=== PATIENT | male | born 1995 | race African-American/Black ===

== ENCOUNTER 2019-11-10 12:53 | Emergency (ER) | payer OTHER ==
[2019-11-10 13:07] VITALS: BP 131/80; PULSE 84; RESP 18; TEMP 98.4
--- NOTE | 2019-11-10 13:14 | ED ---
General Adult HPI - General Chief complaint: Extremity Injury, Lower Stated complaint: Fall - Right Ankle Injury Time Seen by Provider: 11/10/19 12:56 Source: patient, RN notes reviewed Mode of arrival: ambulatory Limitations: no limitations - History of Present Illness Initial comments: Patient is a pleasant 23-year-old male presenting to the emergency department with complaints of right foot and ankle discomfort. Onset of symptoms was prior to arrival. Patient was walking down a hill when he slipped on ice. Patient rolled over his ankle and did hear a snap. No other area of injury other than foot and right ankle. No head injury or loss of consciousness. No alcohol. Patient has limited ability to ambulate when he is up on his toes. No history of injury to this area previously. - Related Data Previous Rx's Medication Instructions Recorded ALPRAZolam [Xanax] 0.25 mg PO Q8HR PRN #10 tablet 08/08/14 Ibuprofen [Motrin] 600 mg PO Q6HR PRN #20 tab 11/10/19 Allergies Allergy/AdvReac Type Severity Reaction Status Date / Time No Known Allergies Allergy Verified 11/10/19 12:56 Review of Systems ROS Statement: Those systems with pertinent positive or pertinent negative responses have been documented in the HPI. ROS Other: All systems not noted in ROS Statement are negative. Constitutional: Denies: fever Eyes: Denies: eye pain ENT: Denies: ear pain Respiratory: Denies: cough Cardiovascular: Denies: chest pain Endocrine: Denies: fatigue Gastrointestinal: Denies: abdominal pain, vomiting Genitourinary: Denies: dysuria Musculoskeletal: Reports: as per HPI. Denies: back pain Skin: Denies: rash Neurological: Denies: headache Past Medical History Past Medical History: Seizure Disorder Additional Past Medical History / Comment(s): tricuspid valve problems, PSEUDOSEIZURES History of Any Multi-Drug Resistant Organisms: None Reported Past Surgical History: Appendectomy, Orthopedic Surgery Additional Past Surgical History / Comment(s): testicular torsion correction Past Psychological History: ADD/ADHD, Depression Smoking Status: Never smoker Past Alcohol Use History: Occasional Past Drug Use History: Marijuana General Exam Limitations: no limitations General appearance: alert, in no apparent distress Head exam: Present: normocephalic Eye exam: Present: normal appearance ENT exam: Present: normal oropharynx Neck exam: Present: normal inspection. Absent: tenderness Respiratory exam: Present: normal lung sounds bilaterally Cardiovascular Exam: Present: regular rate, normal rhythm Expanded Peripheral pulses: 2+: Dorsalis Pedis (R) GI/Abdominal exam: Present: soft. Absent: tenderness Extremities exam: Present: tenderness (Tenderness right lateral ankle and right lateral mid foot. There is also calcaneus tenderness. Distally the extremity is neurovascularly intact. Cap refill less than 2 seconds. Sensation and motor intact.) Back exam: Absent: vertebral tenderness Neurological exam: Present: alert. Absent: motor sensory deficit Psychiatric exam: Present: normal affect, normal mood Skin exam: Present: normal color Course Vital Signs 11/10/19 12:56 Temperature 98.4 F Pulse Rate 84 Respiratory 18 Rate Blood Pressure 131/80 O2 Sat by Pulse 99 Oximetry Medical Decision Making - Medical Decision Making Patient reevaluated and updated. Patient is made aware of potential small avulsion fracture of medial malleolus and is advised nonweightbearing and orthopedic follow-up. Prescription for crutches provided. - Radiology Data Radiology results: image reviewed (X-ray of the calcaneus, right foot, and right ankle reported as no acute abnormality. I do question a small avulsion fracture of the medial malleolus.) Disposition Clinical Impression: Avulsion fracture of medial malleolus of right tibia Disposition: HOME SELF-CARE Condition: Stable Instructions (If sedation given, give patient instructions): Ankle Fracture (ED) Additional Instructions: Please follow-up with primary care physician and orthopedics in the beginning of the week. If discomfort continues he will need repeat x-rays and possible boot or cast. Ice to affected area. Return for increased pain, swelling, worsening symptoms or other concerns. Use crutches, prescription provided. No weightbearing right foot. Prescriptions: Ibuprofen [Motrin] 600 mg PO Q6HR PRN #20 tab PRN Reason: Pain Is patient prescribed a controlled substance at d/c from ED?: No Referrals: Tim Trinidad MD [Primary Care Provider] - 1-2 days Time of Disposition: 14:19
--- NOTE | 2019-11-10 13:40 | XR ---
EXAMINATION TYPE: XR calcaneus 2V RT , 2 VIEWS DATE OF EXAM ORDERED: 11/10/2019 HISTORY: fall. COMPARISON: None. FINDINGS: The calcaneus has a normal appearance. No fracture is seen. Boehler's angle is maintained. IMPRESSION: NORMAL CALCANEUS.
--- NOTE | 2019-11-10 13:40 | XR ---
EXAMINATION TYPE: XR ankle complete RT , 3 VIEWS DATE OF EXAM ORDERED: 11/10/2019 HISTORY: fall. COMPARISON: None. FINDINGS: There is mild soft tissue swelling adjacent to the lateral malleolus. No fracture, disloca tion or ankle joint effusion is seen. IMPRESSION: SOFT TISSUE INJURY.
--- NOTE | 2019-11-10 13:41 | XR ---
EXAMINATION TYPE: XR foot complete RT , 3 VIEWS DATE OF EXAM ORDERED: 11/10/2019 HISTORY: fall. COMPARISON: None. FINDINGS: No fracture, dislocation or other acute osseous lesion is seen. IMPRESSION: NORMAL RIGHT FOOT.
[2019-11-10] MEDS ORDERED: IBUPROFEN 600 MG STARTER PACK 4 TAB BTL PO STA (14:19)
== END 2019-11-10 14:32 | disposition home or self-care (01) ==
LOC: EC 12:53
DX: S82.51XA Displaced fracture of medial malleolus of right tibia, initial encounter for closed fracture (principal); X50.9XXA Other and unspecified overexertion or strenuous movements or postures, initial encounter; Y93.01 Activity, walking, marching and hiking; Y92.828 Other wilderness area as the place of occurrence of the external cause
CPT/HCPCS: 99283

== ENCOUNTER 2020-01-02 09:07 | Emergency (ER) | payer BC, OTHER ==
[2020-01-02 09:13] VITALS: BP 146/86; PULSE 76; RESP 18; TEMP 97.9
[2020-01-02 09:57] LABS: Basophils % (A) 0 %; Eosinophils # (A) 0.3 k/uL (0-0.7); Eosinophils % (A) 6 %; HCT 44.9 % (39.0-53.0); HGB 14.6 gm/dL (13.0-17.5); Lymphocytes # (A) 1.3 k/uL (1.0-4.8); Lymphocytes % (A) 32 %; MCH 28.8 pg (25.0-35.0); MCHC 32.6 g/dL (31.0-37.0); MCV 88.6 fL (80.0-100.0); Mean Platelet Volume 7.8; Monocytes # (A) 0.2 k/uL (0-1.0); Monocytes % (A) 6 %; Neutrophils # (A) 2.1 k/uL (1.3-7.7); Neutrophils % (A) 53 %; Platelet Count 241 k/uL (150-450); RBC 5.07 m/uL (4.30-5.90); RDW 12.5 % (11.5-15.5)
[2020-01-02 10:08] LABS: Partial Thromboplastin Time 23.9 sec (22.0-30.0); Prothrombin Time 10.4 sec (9.0-12.0)
[2020-01-02 10:18] LABS: ALT 36 U/L (4-49); AST 46 U/L (17-59); African American GFR (CKD) >90 (>60 ml/min/1.73 sqM); Albumin 4.3 g/dL (3.5-5.0); Alkaline Phosphatase 70 U/L (38-126); Anion Gap 9 mmol/L; Blood Urea Nitrogen 17 mg/dL (9-20); Calcium 9.2 mg/dL (8.4-10.2); Carbon Dioxide 23 mmol/L (22-30); Chloride 107 mmol/L (98-107); Glucose 100 mg/dL (74-99); Non-African American GFR(CKD) >90 (>60 ml/min/1.73 sqM); Potassium 4.4 mmol/L (3.5-5.1); Sodium 139 mmol/L (137-145); Total Bilirubin 0.6 mg/dL (0.2-1.3); Total Protein 7.4 g/dL (6.3-8.2)
[2020-01-02] MEDS ORDERED: KETOROLAC 30 MG/ML 1 ML VIAL IVP STA (10:25)
--- NOTE | 2020-01-02 10:29 | ED ---
General Adult HPI - General Chief complaint: GI Bleed Stated complaint: blood in stool Time Seen by Provider: 01/02/20 09:15 Source: patient, RN notes reviewed Mode of arrival: ambulatory Limitations: no limitations - History of Present Illness Initial comments: 24-year-old male presents to the emergency department for multiple complaints. Patient states that he had one episode of bright red blood in his stool. Patient states he has been having diarrhea for the past several days. It is watery in nature. Denies any mucousy diarrhea. Denies fevers or chills. Does admit to some mild left lower quadrant discomfort. Patient is also complaining of testicular pain. 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 Patient states that this pain has been ongoing for about 8 days. States that his abdominal pain could be related.Patient has no other complaints at this time including shortness of breath, chest pain, nausea or vomiting, headache, or visual changes. - Related Data Previous Rx's Medication Instructions Recorded ALPRAZolam [Xanax] 0.25 mg PO Q8HR PRN #10 tablet 08/08/14 Ibuprofen [Motrin] 600 mg PO Q6HR PRN #20 tab 11/10/19 Allergies Allergy/AdvReac Type Severity Reaction Status Date / Time No Known Allergies Allergy Verified 01/02/20 09:07 Review of Systems ROS Statement: Those systems with pertinent positive or pertinent negative responses have been documented in the HPI. ROS Other: All systems not noted in ROS Statement are negative. Past Medical History Past Medical History: Seizure Disorder Additional Past Medical History / Comment(s): tricuspid valve problems, PSEUDOSEIZURES History of Any Multi-Drug Resistant Organisms: None Reported Past Surgical History: Appendectomy, Orthopedic Surgery Additional Past Surgical History / Comment(s): testicular torsion correction Past Psychological History: ADD/ADHD, Depression Smoking Status: Former smoker Past Alcohol Use History: Occasional Past Drug Use History: Marijuana General Exam Limitations: no limitations General appearance: alert, in no apparent distress Head exam: Present: atraumatic, normocephalic, normal inspection Eye exam: Present: normal appearance, PERRL, EOMI. Absent: scleral icterus, conjunctival injection, periorbital swelling ENT exam: Present: normal exam, mucous membranes moist Neck exam: Present: normal inspection, full ROM. Absent: tenderness, meningismus, lymphadenopathy Respiratory exam: Present: normal lung sounds bilaterally. Absent: respiratory distress, wheezes, rales, rhonchi, stridor Cardiovascular Exam: Present: regular rate, normal rhythm, normal heart sounds. Absent: systolic murmur, diastolic murmur, rubs, gallop, clicks GI/Abdominal exam: Present: soft, tenderness (Minimal left lower quadrant tenderness without any guarding or rebound), normal bowel sounds. Absent: distended, guarding, rebound, rigid Rectal exam: Present: normal inspection, normal rectal tone, other (Shakira Olmstead present on exam) exam: Present: testicular tenderness (pt has left testicular tenderness), other (Shakira OLMSTEAD present on exam). Absent: urethral discharge, scrotal swelling, vertical testicular lie Course Vital Signs 01/02/20 09:09 Temperature 97.9 F Pulse Rate 76 Respiratory 18 Rate Blood Pressure 146/86 O2 Sat by Pulse 100 Oximetry Medical Decision Making - Medical Decision Making Vitals are stable. She is well-appearing on exam. He has not been any di stress. Abdominal exam is benign. Minimal left lower quadrant tenderness without any guarding or rebound. Patient is afebrile. White blood cell count 4.0. Patient given Toradol and abdominal exam repeated, no tenderness at this time. Occult blood is negative. Discussed treatment of diarrhea with patient to include drinking plenty of fluids and monitoring. If this worsens he will return. Patient was also complaining of left testicular pain with history of testicular torsion with orchiopexy and epididymitis. Patient does have left testicular tenderness on exam. Exam was performed with Shakira OLMSTEAD at bedside. Urinalysis is unremarkable. Gonorrhea and chlamydia are pending. Ultrasound of the scrotum demonstrated a left epididymal cyst and possible phlebolith superior to the left epididymis. Color flow and vascular waveforms noted to both testes. There is a question of lack of color flow in one of the vessels superior to the right testes, patient will follow up with urology for this. I discussed with patient that if he has any worsening symptoms including worsening diarrhea, testicular pain, abdominal pain, or fevers he needs to return immediately to the emergency department. Patient is in agreement with this. States he is already established with urology and will follow-up. - Lab Data Result diagrams: 01/02/20 09:25 01/02/20 09:25 Lab Results 01/02/20 01/02/20 01/02/20 Range/Units 09:25 09:25 09:25 WBC 4.0 (3.8-10.6) k/uL RBC 5.07 (4.30-5.90) m/uL Hgb 14.6 (13.0-17.5) gm/dL Hct 44.9 (39.0-53.0) % MCV 88.6 (80.0-100.0) fL MCH 28.8 (25.0-35.0) pg MCHC 32.6 (31.0-37.0) g/dL RDW 12.5 (11.5-15.5) % Plt Count 241 (150-450) k/uL Neutrophils % 53 % Lymphocytes % 32 % Monocytes % 6 % Eosinophils % 6 % Basophils % 0 % Neutrophils # 2.1 (1.3-7.7) k/uL Lymphocytes # 1.3 (1.0-4.8) k/uL Monocytes # 0.2 (0-1.0) k/uL Eosinophils # 0.3 (0-0.7) k/uL Basophils # 0.0 (0-0.2) k/uL PT 10.4 (9.0-12.0) sec INR 1.0 (<1.2) APTT 23.9 (22.0-30.0) sec Sodium 139 (137-145) mmol/L Potassium 4.4 (3.5-5.1) mmol/L Chloride 107 (98-107) mmol/L Carbon Dioxide 23 (22-30) mmol/L Anion Gap 9 mmol/L BUN 17 (9-20) mg/dL Creatinine 1.12 (0.66-1.25) mg/dL Est GFR (CKD-EPI)AfAm >90 (>60 ml/min/1.73 sqM) Est GFR (CKD-EPI)NonAf >90 (>60 ml/min/1.73 sqM) Glucose 100 H (74-99) mg/dL Calcium 9.2 (8.4-10.2) mg/dL Total Bilirubin 0.6 (0.2-1.3) mg/dL AST 46 (17-59) U/L ALT 36 (4-49) U/L Alkaline Phosphatase 70 (38-126) U/L Total Protein 7.4 (6.3-8.2) g/dL Albumin 4.3 (3.5-5.0) g/dL Urine Color Urine Appearance (Clear) Urine pH (5.0-8.0) Ur Specific [place] (1.001-1.035) Urine Protein (Negative) Urine Glucose (UA) (Negative) Urine Ketones (Negative) Urine Blood (Negative) Urine Nitrite (Negative) Urine Bilirubin (Negative) Urine Urobilinogen (<2.0) mg/dL Ur Leukocyte Esterase (Negative) Stool Occult Blood (Negative) 01/02/20 01/02/20 Range/Units 09:53 10:15 WBC (3.8-10.6) k/uL RBC (4.30-5.90) m/uL Hgb (13.0-17.5) gm/dL Hct (39.0-53.0) % MCV (80.0-100.0) fL MCH (25.0-35.0) pg MCHC (31.0-37.0) g/dL RDW (11.5-15.5) % Plt Count (150-450) k/uL Neutrophils % % Lymphocytes % % Monocytes % % Eosinophils % % Basophils % % Neutrophils # (1.3-7.7) k/uL Lymphocytes # (1.0-4.8) k/uL Monocytes # (0-1.0) k/uL Eosinophils # (0-0.7) k/uL Basophils # (0-0.2) k/uL PT (9.0-12.0) sec INR (<1.2) APTT (22.0-30.0) sec Sodium (137-145) mmol/L Potassium (3.5-5.1) mmol/L Chloride (98-107) mmol/L Carbon Dioxide (22-30) mmol/L Anion Gap mmol/L BUN (9-20) mg/dL Creatinine (0.66-1.25) mg/dL Est GFR (CKD-EPI)AfAm (>60 ml/min/1.73 sqM) Est GFR (CKD-EPI)NonAf (>60 ml/min/1.73 sqM) Glucose (74-99) mg/dL Calcium (8.4-10.2) mg/dL Total Bilirubin (0.2-1.3) mg/dL AST (17-59) U/L ALT (4-49) U/L Alkaline Phosphatase (38-126) U/L Total Protein (6.3-8.2) g/dL Albumin (3.5-5.0) g/dL Urine Color Yellow Urine Appearance Clear (Clear) Urine pH 7.0 (5.0-8.0) Ur Specific [place] 1.028 (1.001-1.035) Urine Protein Negative (Negative) Urine Glucose (UA) Negative (Negative) Urine Ketones Negative (Negative) Urine Blood Negative (Negative) Urine Nitrite Negative (Negative) Urine Bilirubin Negative (Negative) Urine Urobilinogen <2.0 (<2.0) mg/dL Ur Leukocyte Esterase Negative (Negative) Stool Occult Blood Negative (Negative) Disposition Clinical Impression: Epididymal cyst, Testicular pain, left, Diarrhea Disposition: HOME SELF-CARE Condition: Good Instructions (If sedation given, give patient instructions): Scrotal Pain (ED), Acute Diarrhea (ED) Additional Instructions: Please drink plenty of fluids. If you have any worsening symptoms such as worsening abdominal or or testicular pain, worsening diarrhea, or fevers return to the emergency department for further evaluation. Otherwise follow-up with urology by calling for an appointment in the next couple days. Is patient prescribed a controlled substance at d/c from ED?: No Referrals: Tim Trinidad MD [Primary Care Provider] - 1-2 days Darrick Bay MD [STAFF PHYSICIAN] - 1-2 days Time of Disposition: 12:13
--- NOTE | 2020-01-02 11:30 | US ---
EXAMINATION TYPE: US scrotum with doppler. Grayscale and color Doppler Duplex imaging performed of t he scrotum. DATE OF EXAM: 01/02/2020 COMPARISON: NONE CLINICAL HISTORY: L testicular pain, h/o torsion, epididymitis. Left testicular pain, history of epid idymitis EXAM MEASUREMENTS: TESTICLES: Right Testicle: 5.9 x 2.8 x 3.0 cm, no intratesticular mass Left Testicle: 5.6 x 2.6 x 2.7 cm, no intratesticular mass, testicular echotexture is symmetric EPIDIDYMIS HEAD: Right Epididymis: 0.9 x 1.0 x 1.6 cm Left Epididymis: 0.7 x 1.0 x 1.5 cm Doppler performed to assess for testicular vascularity; bilateral color flow and waveforms are seen. Presence of hydroceles: no Presence of varicoceles: prominent vessel superior to right testicle, color flow not identified at t his level Left epididymis: 0.7 x 0.5 x 0.8cm cystic area 0.4cm echogenic shadowing focus seen within spermatic cord superior to left testicle and epididymi s IMPRESSION: Left epididymal cyst. Possible phlebolith superior to left epididymis. Color-flow, vascul ar waveforms noted to both testes. Question of lack of color flow in one of the vessels superior to t he right testis on a single image #25, grayscale image #24, consider urology consult, follow-up.
[2020-01-02 11:49] LABS: Appearance,Urine Clear (Clear); Bilirubin,Urine Negative (Negative); Blood,Urine Negative (Negative); Color,Urine Yellow; Glucose,Urine (UA) Negative (Negative); Ketones,Urine Negative (Negative); Leukocyte Esterase,Urine Negative (Negative); Nitrite,Urine Negative (Negative); Protein,Urine Negative (Negative); Specific Gravity,Urine 1.028 (1.001-1.035); Urobilinogen,Urine <2.0 mg/dL (<2.0)
[2020-01-03 15:38] LABS: C. trachomatis,PCR Negative (Neg,Equiv); Chlamydia trachomatis Source Urine; N. gonorrhoeae,PCR Negative (Neg,Equiv); Neisseria Source Urine
== END 2020-01-02 12:24 | disposition home or self-care (01) ==
LOC: EC 09:07
DX: N50.3 Cyst of epididymis (principal); R19.7 Diarrhea, unspecified; K92.1 Melena; Z87.891 Personal history of nicotine dependence; Z98.890 Other specified postprocedural states
CPT/HCPCS: 36415; 80053; 85025; 85610; 85730; 82272; 81003; 87491; 87591; 93975; 76870; 99285; 96374; J1885

== ENCOUNTER 2020-06-29 16:38 | Emergency (ER) | payer BC, OTHER ==
[2020-06-29 16:44] VITALS: RESP 18; TEMP 98.6
--- NOTE | 2020-06-29 16:52 | ED ---
General Adult HPI - General Chief complaint: Seizure Stated complaint: Seizures Time Seen by Provider: 06/29/20 16:45 Source: patient, family, EMS Mode of arrival: EMS Limitations: no limitations - History of Present Illness Initial comments: Patient presents the ED by ambulance for evaluation with his significant other at bedside. Patient states that "five people were arguing and screaming around me", causing him to become very "worked up" and anxious. Patient states that he then became shaky and had 2 seizure episodes. Patient's significant other states that she witnessed these episodes, and she describes the patient hyperventilating and becoming stiff. Patient states that he has a history of anxiety and pseudoseizures. Patient denies being a prescribed or taking any antiepileptic medication. Patient is currently only complaining of having a headache. Patient denies trauma or injury, sudden onset of severe headache, LOC, fever or chills, focal numbness is weakness/neuro deficit, neck/back/extremity pain, chest pain, dyspnea, palpitations, abdominal pain, nausea/vomiting/diarrhea, urinary symptoms, or any other symptoms or complaints. Patient admits to occasional marijuana use. Patient denies alcohol use. Patient denies medication abuse or overdose. - Related Data Home Medications Medication Instructions Recorded Confirmed No Known Home Medications 06/29/20 06/29/20 Allergies Allergy/AdvReac Type Severity Reaction Status Date / Time alprazolam [From Xanax] AdvReac DOESN'T Verified 06/29/20 17:45 WANT morphine AdvReac DOESN'T Verified 06/29/20 17:45 WANT Review of Systems ROS Statement: Those systems with pertinent positive or pertinent negative responses have been documented in the HPI. ROS Other: All systems not noted in ROS Statement are negative. Past Medical History Past Medical History: Seizure Disorder Additional Past Medical History / Comment(s): tricuspid valve problems, PSEUDOSEIZURES History of Any Multi-Drug Resistant Organisms: None Reported Past Surgical History: Appendectomy, Orthopedic Surgery Additional Past Surgical History / Comment(s): testicular torsion correction Past Psychological History: ADD/ADHD, Anxiety, Bipolar, Depression, Schizophrenia Smoking Status: Current every day smoker Past Alcohol Use History: Occasional Past Drug Use History: Marijuana General Exam Limitations: no limitations General appearance: alert, in no apparent distress Head exam: Present: atraumatic, normocephalic Eye exam: Present: normal appearance, PERRL, EOMI ENT exam: Present: mucous membranes moist Neck exam: Present: other (Trachea is in midline). Absent: tenderness, meningismus Respiratory exam: Present: normal lung sounds bilaterally. Absent: respiratory distress, wheezes, rales, rhonchi Cardiovascular Exam: Present: regular rate, normal rhythm, normal heart sounds, other (Normal radial pulses bilaterally) GI/Abdominal exam: Present: soft. Absent: distended, tenderness, guarding Extremities exam: Present: full ROM. Absent: tenderness, pedal edema Back exam: Present: normal inspection. Absent: tenderness Neurological exam: Present: alert, oriented X3, CN II-XII intact. Absent: motor sensory deficit Psychiatric exam: Present: normal affect, normal mood Skin exam: Present: warm, dry, intact, normal color Course Vital Signs 06/29/20 16:39 Temperature 98.6 F Pulse Rate 97 Respiratory 18 Rate Blood Pressure 114/73 O2 Sat by Pulse 96 Oximetry - Reevaluation(s) Reevaluation #1: 06/29/20 18:15 Patient remains alert and breathing comfortably. Patient continues to have a normal neurological exam. Patient has not had any seizure activity while in the ED. Patient denies development of any new symptoms while in the ED. Patient and significant other are aware of the patient's test results, and patient feels comfortable going home with his significant other at this time. Patient was counseled about anxiety and pseudoseizures/seizures. Patient was clearly explained return and follow-up instructions. Patient was instructed to follow up closely with his primary care provider. EKG Findings - EKG Comments: EKG Findings:: Normal sinus rhythm, ventricular rate of 93 bpm, no ectopy, normal SD and QRS intervals, normal QT interval, normal axis, nonspecific ST and T-wave abnormality Medical Decision Making - Medical Decision Making Patient's EKG, labs and noncontrast head CT are all fairly unremarkable. Patient's vital signs are reassuring. Patient reports becoming very anxious af ter people around him were arguing, which he states triggered his episodes today. I suspect that the patient's symptoms were likely secondary to anxiety and possible pseudoseizures. I think that a true seizure is much less likely. Will discharge patient home with his significant other at this time. - Lab Data Result diagrams: 06/29/20 17:32 06/29/20 17:32 Lab Results 06/29/20 06/29/20 06/29/20 Range/Units 17:32 17:32 17:32 WBC 7.8 (3.8-10.6) k/uL RBC 5.14 (4.30-5.90) m/uL Hgb 15.0 (13.0-17.5) gm/dL Hct 45.5 (39.0-53.0) % MCV 88.5 (80.0-100.0) fL MCH 29.1 (25.0-35.0) pg MCHC 32.9 (31.0-37.0) g/dL RDW 12.5 (11.5-15.5) % Plt Count 253 (150-450) k/uL Neutrophils % 67 % Lymphocytes % 20 % Monocytes % 6 % Eosinophils % 6 % Basophils % 0 % Neutrophils # 5.2 (1.3-7.7) k/uL Lymphocytes # 1.6 (1.0-4.8) k/uL Monocytes # 0.4 (0-1.0) k/uL Eosinophils # 0.4 (0-0.7) k/uL Basophils # 0.0 (0-0.2) k/uL Sodium 139 (137-145) mmol/L Potassium 3.8 (3.5-5.1) mmol/L Chloride 111 H (98-107) mmol/L Carbon Dioxide 20 L (22-30) mmol/L Anion Gap 8 mmol/L BUN 13 (9-20) mg/dL Creatinine 1.20 (0.66-1.25) mg/dL Est GFR (CKD-EPI)AfAm >90 (>60 ml/min/1.73 sqM) Est GFR (CKD-EPI)NonAf 84 (>60 ml/min/1.73 sqM) Glucose 117 H (74-99) mg/dL Calcium 9.5 (8.4-10.2) mg/dL Total Bilirubin 0.3 (0.2-1.3) mg/dL AST 32 (17-59) U/L ALT 27 (4-49) U/L Alkaline Phosphatase 71 (38-126) U/L Total Protein 6.5 (6.3-8.2) g/dL Albumin 4.0 (3.5-5.0) g/dL Urine Opiates Screen Not Detected (NotDetected) Ur Oxycodone Screen Not Detected (NotDetected) Urine Methadone Screen Not Detected (NotDetected) Ur Propoxyphene Screen Not Detected (NotDetected) Ur Barbiturates Screen Not Detected (NotDetected) U Tricyclic Antidepress Not Detected (NotDetected) Ur Phencyclidine Scrn Not Detected (NotDetected) Ur Amphetamines Screen Not Detected (NotDetected) U Methamphetamines Scrn Not Detected (NotDetected) U Benzodiazepines Scrn Not Detected (NotDetected) Urine Cocaine Screen Not Detected (NotDetected) U Marijuana (THC) Screen Detected H (NotDetected) - Radiology Data Radiology results: report reviewed (Negative noncontrast head CT) Disposition Clinical Impression: Anxiety Narrative: Possible seizure vs. pseudoseizure Disposition: HOME SELF-CARE Condition: Stable Instructions (If sedation given, give patient instructions): Recurrent Seizures in Adults (ED), Anxiety (ED) Additional Instructions: Return to the ER immediately should you develop another seizure, new or worsening pain, a fever, chest pain, shortness of breath, feeling dizzy or faint, numbness or weakness, or new or worsening symptoms. Follow up closely with your primary care provider. Is patient prescribed a controlled substance at d/c from ED?: No Referrals: Tim Trinidad MD [Primary Care Provider] - 1-2 days Time of Disposition: 18:18
[2020-06-29] MEDS ORDERED: ACETAMINOPHEN TAB 500 MG TAB PO STA (16:58)
[2020-06-29] MEDS ORDERED: SODIUM CHLORIDE 0.9% 1,000 ML IV STA (16:59)
[2020-06-29 17:41] LABS: Basophils % (A) 0 %; Eosinophils # (A) 0.4 k/uL (0-0.7); Eosinophils % (A) 6 %; HCT 45.5 % (39.0-53.0); Lymphocytes # (A) 1.6 k/uL (1.0-4.8); Lymphocytes % (A) 20 %; MCH 29.1 pg (25.0-35.0); MCHC 32.9 g/dL (31.0-37.0); MCV 88.5 fL (80.0-100.0); Mean Platelet Volume 7.9; Monocytes # (A) 0.4 k/uL (0-1.0); Monocytes % (A) 6 %; Neutrophils # (A) 5.2 k/uL (1.3-7.7); Neutrophils % (A) 67 %; Platelet Count 253 k/uL (150-450); RBC 5.14 m/uL (4.30-5.90); RDW 12.5 % (11.5-15.5); WBC 7.8 k/uL (3.8-10.6)
[2020-06-29 17:50] LABS: ALT 27 U/L (4-49); AST 32 U/L (17-59); African American GFR (CKD) >90 (>60 ml/min/1.73 sqM); Alkaline Phosphatase 71 U/L (38-126); Anion Gap 8 mmol/L; Blood Urea Nitrogen 13 mg/dL (9-20); Calcium 9.5 mg/dL (8.4-10.2); Carbon Dioxide 20 mmol/L (22-30); Chloride 111 mmol/L (98-107); Glucose 117 mg/dL (74-99); Non-African American GFR(CKD) 84 (>60 ml/min/1.73 sqM); Potassium 3.8 mmol/L (3.5-5.1); Sodium 139 mmol/L (137-145); Total Bilirubin 0.3 mg/dL (0.2-1.3); Total Protein 6.5 g/dL (6.3-8.2)
[2020-06-29 17:52] LABS: Amphetamine Screen,Urine Not Detected (NotDetected); Barbiturate Screen,Urine Not Detected (NotDetected); Benzodiazepines Screen,Urine Not Detected (NotDetected); Cocaine Screen,Urine Not Detected (NotDetected); Methadone Screen, Urine Not Detected (NotDetected); Opiate Screen,Urine Not Detected (NotDetected); Oxycodone Screen, Urine Not Detected (NotDetected); Phencyclidine Screen,Urine Not Detected (NotDetected); Tricyclic Antidepressant,Urine Not Detected (NotDetected); Urn Cannabinoid Scrn Detected (NotDetected)
--- NOTE | 2020-06-29 17:58 | CT ---
EXAMINATION TYPE: CT brain wo con DATE OF EXAM: 06/29/2020 COMPARISON: 07/08/2014 HISTORY: Seizure activity. Pt has hx of seizures CT DLP: 1142.4 mGycm Automated exposure control for dose reduction was used. Ventricles and sulci appear normal. There is no mass effect nor midline shift. There is no sign of in tracranial hemorrhage. There is no evidence of cerebral edema. Calvarium is intact. Skull base is int act. IMPRESSION: Normal unenhanced head CT scan. No change.
[2020-06-29 18:23] VITALS: BP 118/70; PULSE 88
== END 2020-06-29 18:24 | disposition home or self-care (01) ==
LOC: EC 16:38
DX: F41.9 Anxiety disorder, unspecified (principal); F17.200 Nicotine dependence, unspecified, uncomplicated; Z88.5 Allergy status to narcotic agent; Z88.8 Allergy status to other drugs, medicaments and biological substances
CPT/HCPCS: 36415; 70450; 80053; 80306; 85025; 93005; 96360; 99285

== ENCOUNTER 2020-07-27 13:47 | Emergency (ER) | payer BC, OTHER ==
--- NOTE | 2020-07-27 13:58 | ED ---
Seizure HPI - General Stated Complaint: SEIZURES Time Seen by Provider: 07/27/20 13:56 Source: RN notes reviewed, old records reviewed Limitations: no limitations, altered mental status - History of Present Illness Initial Comments: This is a 24-year-old male DF for evaluation patient is postictal as well as on 10 mg a percent on arrival so is a poor historian clinically. Patient comes in with multiple seizures today 3-4 seizures witnessed. No headache chest pain shortness of breath MD Complaint: seizure, other (History of seizure) -: hour(s) Description of Episode: loss of consciousness, tonic-clonic movement, post-event confusion -: minutes(s) Witnessed: yes - by bystander Trauma: No Seizure History: known seizure disorder, history of non-compliance with treatment Place: home Possible Precipitating Event: none Associated Symptoms: denies other symptoms Treatments Prior to Arrival: benzodiazepines - Related Data Home Medications Medication Instructions Recorded Confirmed No Known Home Medications 06/29/20 06/29/20 Allergies Allergy/AdvReac Type Severity Reaction Status Date / Time alprazolam [From Xanax] AdvReac DOESN'T Verified 06/29/20 17:45 WANT morphine AdvReac DOESN'T Verified 06/29/20 17:45 WANT Review of Systems ROS Statement: Those systems with pertinent positive or pertinent negative responses have been documented in the HPI. ROS Other: All systems not noted in ROS Statement are negative. Past Medical History Past Medical History: Seizure Disorder Additional Past Medical History / Comment(s): tricuspid valve problems, PSEUDOSEIZURES History of Any Multi-Drug Resistant Organisms: None Reported Past Surgical History: Appendectomy, Orthopedic Surgery Additional Past Surgical History / Comment(s): testicular torsion correction Past Psychological History: ADD/ADHD, Anxiety, Bipolar, Depression, Schizophrenia Smoking Status: Current every day smoker Past Alcohol Use History: Occasional Past Drug Use History: Marijuana General Exam General appearance: alert, in no apparent distress Head exam: Present: atraumatic, normocephalic, normal inspection Eye exam: Present: normal appearance, PERRL, EOMI. Absent: scleral icterus, conjunctival injection, periorbital swelling ENT exam: Present: normal exam, mucous membranes moist Neck exam: Present: normal inspection. Absent: tenderness, meningismus, lymphadenopathy Respiratory exam: Present: normal lung sounds bilaterally. Absent: respiratory distress, wheezes, rales, rhonchi, stridor Cardiovascular Exam: Present: regular rate, normal rhythm, normal heart sounds. Absent: systolic murmur, diastolic murmur, rubs, gallop, clicks GI/Abdominal exam: Present: soft, normal bowel sounds. Absent: distended, tenderness, guarding, rebound, rigid Extremities exam: Present: normal inspection, full ROM, normal capillary refill. Absent: tenderness, pedal edema, joint swelling, calf tenderness Back exam: Present: normal inspection Neurological exam: Present: alert, oriented X3, CN II-XII intact Psychiatric exam: Present: normal affect, normal mood Skin exam: Present: warm, dry, intact, normal color. Absent: rash Course Vital Signs 07/27/20 07/27/20 07/27/20 13:50 13:54 14:00 Temperature 98.4 F Pulse Rate 95 Respiratory 17 Rate Blood Pressure 121/65 121/65 121/65 O2 Sat by Pulse 97 98 96 Oximetry 07/27/20 07/27/20 07/27/20 14:30 15:00 15:30 Temperature Pulse Rate 89 71 67 Respiratory 19 20 17 Rate Blood Pressure 121/65 113/64 111/57 O2 Sat by Pulse Oximetry - Reevaluation(s) Reevaluation #1: 07/27/20 15:33 Medical record is reviewed Reevaluation #2: 07/27/20 15:33 Patient is improving from postictal state Reevaluation #3: 07/27/20 15:33 Spoke with patient regarding findings here in the ER and questions are answered - Consultations Consultation #1: Spoke with Dr. Trinidad will make appointment to see patient in the office Medical Decision Making - Medical Decision Making 24 male the ER with seizure history of seizures. Patient evaluated here in the ER no recurrent seizure here in the ER. Patient can be discharged home - Lab Data Result diagrams: 07/27/20 14:39 07/27/20 14:39 Lab Results 07/27/20 07/27/20 Range/Units 14:39 14:39 WBC 5.2 (3.8-10.6) k/uL RBC 4.81 (4.30-5.90) m/uL Hgb 14.6 (13.0-17.5) gm/dL Hct 43.2 (39.0-53.0) % MCV 89.8 (80.0-100.0) fL MCH 30.5 (25.0-35.0) pg MCHC 33.9 (31.0-37.0) g/dL RDW 12.4 (11.5-15.5) % Plt Count 246 (150-450) k/uL Neutrophils % 62 % Lymphocytes % 22 % Monocytes % 6 % Eosinophils % 7 % Basophils % 1 % Neutrophils # 3.3 (1.3-7.7) k/uL Lymphocytes # 1.2 (1.0-4.8) k/uL Monocytes # 0.3 (0-1.0) k/uL Eosinophils # 0.4 (0-0.7) k/uL Basophils # 0.0 (0-0.2) k/uL Sodium 139 (137-145) mmol/L Potassium 3.9 (3.5-5.1) mmol/L Chloride 110 H (98-107) mmol/L Carbon Dioxide 23 (22-30) mmol/L Anion Gap 6 mmol/L BUN 14 (9-20) mg/dL Creatinine 1.20 (0.66-1.25) mg/dL Est GFR (CKD-EPI)AfAm >90 (>60 ml/min/1.73 sqM) Est GFR (CKD-EPI)NonAf 84 (>60 ml/min/1.73 sqM) Glucose 91 (74-99) mg/dL Calcium 9.2 (8.4-10.2) mg/dL Total Bilirubin 0.5 (0.2-1.3) mg/dL AST 30 (17-59) U/L ALT 29 (4-49) U/L Alkaline Phosphatase 61 (38-126) U/L Total Protein 6.4 (6.3-8.2) g/dL Albumin 4.0 (3.5-5.0) g/dL Salicylates <1.0 mg/dL Acetaminophen <10.0 ug/mL Phenytoin <3.0 ug/mL Valproic Acid <10.0 ug/mL Carbamazepine <3.0 ug/mL [place] <0.2 mmol/L Serum Alcohol <10 mg/dL - EKG Data -: EKG Interpreted by Me (EKG is sinus rhythm rate of 74 WI 156 QRS 96 QTc 426) Disposition Clinical Impression: Seizure, Generalized seizure, Anxiety Disposition: HOME SELF-CARE Condition: Fair Instructions (If sedation given, give patient instructions): Recurrent Seizures in Adults (ED) Is patient prescribed a controlled substance at d/c from ED?: No Referrals: Tim Trinidad MD [Primary Care Provider] - 1-2 days
[2020-07-27 14:00] VITALS: RESP 17; TEMP 98.4
[2020-07-27] MEDS ORDERED: SODIUM CHLORIDE 0.9% 1,000 ML IV STA ×2 (14:17)
[2020-07-27] MEDS ORDERED: levETIRAcetam IV 1,000 MG in SALINE 1 100ML.BAG IVPB STA (14:18)
[2020-07-27 14:50] LABS: Basophils % (A) 1 %; Eosinophils # (A) 0.4 k/uL (0-0.7); Eosinophils % (A) 7 %; HCT 43.2 % (39.0-53.0); HGB 14.6 gm/dL (13.0-17.5); Lymphocytes # (A) 1.2 k/uL (1.0-4.8); Lymphocytes % (A) 22 %; MCH 30.5 pg (25.0-35.0); MCHC 33.9 g/dL (31.0-37.0); MCV 89.8 fL (80.0-100.0); Mean Platelet Volume 7.4; Monocytes # (A) 0.3 k/uL (0-1.0); Monocytes % (A) 6 %; Neutrophils # (A) 3.3 k/uL (1.3-7.7); Neutrophils % (A) 62 %; Platelet Count 246 k/uL (150-450); RBC 4.81 m/uL (4.30-5.90); RDW 12.4 % (11.5-15.5); WBC 5.2 k/uL (3.8-10.6)
[2020-07-27 15:09] LABS: ALT 29 U/L (4-49); AST 30 U/L (17-59); Acetaminophen <10.0 ug/mL; African American GFR (CKD) >90 (>60 ml/min/1.73 sqM); Alcohol <10 mg/dL; Alkaline Phosphatase 61 U/L (38-126); Anion Gap 6 mmol/L; Blood Urea Nitrogen 14 mg/dL (9-20); Calcium 9.2 mg/dL (8.4-10.2); Carbamazepine (Tegretol) <3.0 ug/mL; Carbon Dioxide 23 mmol/L (22-30); Chloride 110 mmol/L (98-107); Glucose 91 mg/dL (74-99); Lithium <0.2 mmol/L; Non-African American GFR(CKD) 84 (>60 ml/min/1.73 sqM); Phenytoin (Dilantin) <3.0 ug/mL; Potassium 3.9 mmol/L (3.5-5.1); Salicylate <1.0 mg/dL; Sodium 139 mmol/L (137-145); Total Bilirubin 0.5 mg/dL (0.2-1.3); Total Protein 6.4 g/dL (6.3-8.2)
[2020-07-27 15:12] LABS: Valproic Acid (Depakene) <10.0 ug/mL
[2020-07-27 15:53] VITALS: BP 111/57; PULSE 67
[2020-07-27 16:15] LABS: Amphetamine Screen,Urine Not Detected (NotDetected); Barbiturate Screen,Urine Not Detected (NotDetected); Benzodiazepines Screen,Urine Not Detected (NotDetected); Cocaine Screen,Urine Not Detected (NotDetected); Methadone Screen, Urine Not Detected (NotDetected); Opiate Screen,Urine Not Detected (NotDetected); Oxycodone Screen, Urine Not Detected (NotDetected); Phencyclidine Screen,Urine Not Detected (NotDetected); Tricyclic Antidepressant,Urine Not Detected (NotDetected); Urn Cannabinoid Scrn Not Detected (NotDetected)
== END 2020-07-27 16:58 | disposition home or self-care (01) ==
LOC: EC 13:47
DX: G40.909 Epilepsy, unspecified, not intractable, without status epilepticus (principal); F41.9 Anxiety disorder, unspecified; F17.200 Nicotine dependence, unspecified, uncomplicated; Z88.5 Allergy status to narcotic agent; Z88.8 Allergy status to other drugs, medicaments and biological substances; Z90.49 Acquired absence of other specified parts of digestive tract
CPT/HCPCS: 36415; 80053; 80156; 80164; 80178; 80185; 80306; 80320; 80329; 83520; 85025; 93005; 96360; 96361; 99284

== ENCOUNTER 2020-08-27 15:18 | Emergency (ER) | payer BC, OTHER ==
[2020-08-27 15:37] VITALS: BP 144/88; PULSE 78; RESP 18; TEMP 100.5
--- NOTE | 2020-08-27 16:44 | XR ---
EXAMINATION TYPE: XR chest 2V DATE OF EXAM: 08/27/2020 COMPARISON: 05/02/2014 HISTORY: Cough and congestion TECHNIQUE: FINDINGS: Heart and mediastinum are normal. Lungs are clear. Diaphragm is normal. Bony thorax appears normal. IMPRESSION: Normal chest. No change.
[2020-08-27] MEDS ORDERED: ACETAMINOPHEN TAB 500 MG TAB PO STA (16:53)
--- NOTE | 2020-08-27 17:02 | ED ---
General Adult HPI - General Chief complaint: Shortness of Breath Stated complaint: possible covid Time Seen by Provider: 08/27/20 16:52 Source: patient Mode of arrival: wheelchair Limitations: no limitations - History of Present Illness Initial comments: 24-year-old male presenting to the emergency department with a chief complaint of cold. Patient states that he was exposed about 10 days ago but is only symptomatic for the last 3 days. Patient states he does smoke and is now developing a cough. He does report chills today. Denies taking medication to alleviate the symptoms. He also reports loss of taste but not smell. Does report some sinus congestion. Does report some associated shortness of breath. Patient is requesting Covid testing.patient denies any chest pain. - Related Data Home Medications Medication Instructions Recorded Confirmed No Known Home Medications 06/29/20 06/29/20 Allergies Allergy/AdvReac Type Severity Reaction Status Date / Time alprazolam [From Xanax] AdvReac DOESN'T Verified 08/27/20 15:37 WANT morphine AdvReac DOESN'T Verified 08/27/20 15:37 WANT Review of Systems ROS Statement: Those systems with pertinent positive or pertinent negative responses have been documented in the HPI. ROS Other: All systems not noted in ROS Statement are negative. Past Medical History Past Medical History: Seizure Disorder Additional Past Medical History / Comment(s): tricuspid valve problems, PSEUDOSEIZURES, History of Any Multi-Drug Resistant Organisms: None Reported Past Surgical History: Appendectomy, Orthopedic Surgery Additional Past Surgical History / Comment(s): testicular torsion correction, Past Psychological History: ADD/ADHD, Anxiety, Bipolar, Depression, Schizophrenia Smoking Status: Current every day smoker Past Alcohol Use History: Occasional Past Drug Use History: Marijuana General Exam Limitations: no limitations General appearance: alert, in no apparent distress Head exam: Present: atraumatic, normocephalic, normal inspection Eye exam: Present: normal appearance, PERRL, EOMI Pupils: Present: normal accommodation ENT exam: Present: normal exam, normal oropharynx, mucous membranes moist, TM's normal bilaterally, normal external ear exam Neck exam: Present: normal inspection, full ROM. Absent: tenderness Respiratory exam: Present: normal lung sounds bilaterally. Absent: respiratory distress, wheezes, rales, rhonchi, stridor, chest wall tenderness, accessory muscle use, decreased breath sounds, prolonged expiratory Cardiovascular Exam: Present: regular rate, normal rhythm, normal heart sounds Extremities exam: Present: normal inspection, full ROM, normal capillary refill. Absent: tenderness, pedal edema, joint swelling Back exam: Present: normal inspection, full ROM. Absent: tenderness, CVA tenderness (R), CVA tenderness (L) Neurological exam: Present: alert, oriented X3, normal gait Psychiatric exam: Present: normal affect, normal mood Skin exam: Present: warm, dry, intact, normal color Course Vital Signs 08/27/20 08/27/20 15:34 16:36 Temperature 100.5 F H Pulse Rate 78 Respiratory 18 18 Rate Blood Pressure 144/88 O2 Sat by Pulse 97 Oximetry Medical Decision Making - Medical Decision Making 24-year-old male presenting to emergency department chief complaint of cold. Patient has been exposed but is only symptom whether for past 3 days. He doesn't have fever here. Patient was given Tylenol. Chest x-ray is unremarkable. Covid testing pending. Patient advised to self isolate only take Tylenol for a fever. His vitals are within normal limits aside from the fever. I counseled the patient for smoking cessation for greater than 3 minutes Return parameters were discussed with patient was understanding and agreeable. No chest pain. Case discussed with physician. Disposition Clinical Impression: Cough, Respiratory infection Disposition: HOME SELF-CARE Condition: Stable Instructions (If sedation given, give patient instructions): Chronic Bronchitis (ED) Additional Instructions: Take Tylenol if he developed fever. He will be contacted regarding Covid testing results. Return to emergency department if symptoms worsen. Stop smoking. Is patient prescribed a controlled substance at d/c from ED?: No Referrals: Tim Trinidad MD [Primary Care Provider] - 1-2 days Time of Disposition: 17:02
== END 2020-08-27 17:24 | disposition home or self-care (01) ==
LOC: EC 15:18
DX: J98.8 Other specified respiratory disorders (principal); F17.200 Nicotine dependence, unspecified, uncomplicated; Z88.5 Allergy status to narcotic agent; Z88.8 Allergy status to other drugs, medicaments and biological substances
CPT/HCPCS: 71046; 99285; 99406; U0003

== ENCOUNTER 2020-12-27 10:05 | Emergency (ER) | payer BC, OTHER ==
[2020-12-27 10:12] VITALS: RESP 16
[2020-12-27] MEDS ORDERED: SODIUM CHLORIDE 0.9% 1,000 ML IV STA (10:30)
[2020-12-27] MEDS ORDERED: KETOROLAC 15 MG/ML 1 ML VIAL IVP STA (10:30)
[2020-12-27 10:47] LABS: Basophils % (A) 1 %; Eosinophils # (A) 0.3 k/uL (0-0.7); Eosinophils % (A) 5 %; HCT 45.5 % (39.0-53.0); Lymphocytes # (A) 1.2 k/uL (1.0-4.8); Lymphocytes % (A) 26 %; MCH 28.8 pg (25.0-35.0); MCHC 32.9 g/dL (31.0-37.0); MCV 87.6 fL (80.0-100.0); Mean Platelet Volume 7.2; Monocytes # (A) 0.3 k/uL (0-1.0); Monocytes % (A) 7 %; Neutrophils # (A) 2.9 k/uL (1.3-7.7); Neutrophils % (A) 60 %; Platelet Count 280 k/uL (150-450); RBC 5.19 m/uL (4.30-5.90); RDW 12.9 % (11.5-15.5); WBC 4.8 k/uL (3.8-10.6)
[2020-12-27 10:58] LABS: Appearance,Urine Clear (Clear); Bilirubin,Urine Negative (Negative); Blood,Urine Trace (Negative); Color,Urine Yellow; Glucose,Urine (UA) Negative (Negative); Ketones,Urine Negative (Negative); Leukocyte Esterase,Urine Negative (Negative); Mucus,Urine Rare /hpf; Nitrite,Urine Negative (Negative); PH, Urine 5.5 (5.0-8.0); Protein,Urine Negative (Negative); RBC,Urine 1 /hpf (0-5); Specific Gravity,Urine 1.025 (1.001-1.035); Urobilinogen,Urine <2.0 mg/dL (<2.0); WBC,Urine <1 /hpf (0-5)
[2020-12-27 11:03] LABS: ALT 33 U/L (4-49); AST 35 U/L (17-59); African American GFR (CKD) >90 (>60 ml/min/1.73 sqM); Albumin 4.4 g/dL (3.5-5.0); Alkaline Phosphatase 70 U/L (38-126); Anion Gap 7 mmol/L; Blood Urea Nitrogen 19 mg/dL (9-20); Calcium 9.6 mg/dL (8.4-10.2); Carbon Dioxide 26 mmol/L (22-30); Chloride 108 mmol/L (98-107); Glucose 95 mg/dL (74-99); Non-African American GFR(CKD) >90 (>60 ml/min/1.73 sqM); Potassium 4.3 mmol/L (3.5-5.1); Sodium 141 mmol/L (137-145); Total Bilirubin 0.4 mg/dL (0.2-1.3); Total Protein 7.1 g/dL (6.3-8.2)
[2020-12-27 11:05] LABS: Cocaine Screen,Urine Not Detected (NotDetected); Opiate Screen,Urine Not Detected (NotDetected); Phencyclidine Screen,Urine Not Detected (NotDetected); Urn Cannabinoid Scrn Not Detected (NotDetected)
[2020-12-27 11:06] LABS: Amphetamine Screen,Urine Not Detected (NotDetected); Barbiturate Screen,Urine Not Detected (NotDetected); Benzodiazepines Screen,Urine Not Detected (NotDetected); Methadone Screen, Urine Not Detected (NotDetected); Oxycodone Screen, Urine Not Detected (NotDetected); Tricyclic Antidepressant,Urine Not Detected (NotDetected)
--- NOTE | 2020-12-27 11:23 | XR ---
Lumbar spine. HISTORY: Seizure and fall with back pain. COMPARISON: None. TECHNIQUE: 6 views of the lumbar spine were obtained. FINDINGS: The lumbar vertebral segments are normal in height and alignment and there is no fracture or subluxat ion. The disc spaces are well-maintained. There is no spondylolysis or spondylolisthesis. The sacrum and SI joints are normal. IMPRESSION: No significant abnormality seen.
--- NOTE | 2020-12-27 11:25 | XR ---
Thoracic spine. HISTORY: Seizure and fall with back pain. COMPARISON: None. TECHNIQUE: 3 views of thoracic spine were obtained. FINDINGS: The thoracic vertebral segments are normal in height and alignment and there is no fracture or sublux ation. The paraspinal soft tissues are unremarkable. IMPRESSION: No evidence of acute trauma. No significant abnormality seen.
[2020-12-27] MEDS ORDERED: PHENYTOIN SODIUM EXTENDED 100 MG CAP PO STA (11:55)
--- NOTE | 2020-12-27 11:59 | ED ---
Seizure HPI - General Chief Complaint: Seizure Stated Complaint: seziures Time Seen by Provider: 12/27/20 10:12 Source: patient, EMS Mode of arrival: EMS Limitations: no limitations - History of Present Illness Initial Comments: 25-year-old male patient with past medical history significant for seizure disorder presents to the emergency department today for evaluation after having 2 seizures. States he started to feel dizzy and girlfriend informed him that he had a seizure. She reportedly last approximately 5 minutes each. Patient came in by ambulance. He is currently reporting mild headache. Denies any numbness, tingling, weakness to his extremities. Denies any nausea or vomiting. States he has been well recently. States he did stop all medications of couple of weeks ago. States his been a long time since he took his seizure medications as previously on Dilantin he believes it was two 100 mg tablets twice today. Patient denies any recent rash, fever, chills, cough, shortness of breath, chest pain, abdominal pain, diarrhea, constipation, back pain, hematuria, dysuria, urinary urgency, urinary frequency, or any other complaints. - Related Data Previous Rx's Medication Instructions Recorded Phenytoin Sodium Extended 200 mg PO BID #120 capsule 12/27/20 [Dilantin] Allergies Allergy/AdvReac Type Severity Reaction Status Date / Time alprazolam [From Xanax] AdvReac DOESN'T Verified 08/27/20 15:37 WANT morphine AdvReac DOESN'T Verified 08/27/20 15:37 WANT Review of Systems ROS Statement: Those systems with pertinent positive or pertinent negative responses have been documented in the HPI. ROS Other: All systems not noted in ROS Statement are negative. Past Medical History Past Medical History: Seizure Disorder Additional Past Medical History / Comment(s): tricuspid valve problems, PSEUD OSEIZURES, History of Any Multi-Drug Resistant Organisms: None Reported Past Surgical History: Appendectomy, Orthopedic Surgery Additional Past Surgical History / Comment(s): testicular torsion correction, Past Psychological History: ADD/ADHD, Anxiety, Bipolar, Depression, Schizophrenia Smoking Status: Current every day smoker Past Alcohol Use History: Occasional Past Drug Use History: Marijuana General Exam Limitations: no limitations General appearance: alert, in no apparent distress, other (This is a well- developed, well-nourished adult male patient in no acute distress. Vital signs upon presentation are temperature 98.5F, pulse 73, respirations 16, blood pressure 132/78, pulse ox 99% on room air.) Eye exam: Present: normal appearance, PERRL, EOMI. Absent: scleral icterus, conjunctival injection, periorbital swelling ENT exam: Present: normal exam, normal oropharynx, mucous membranes moist Respiratory exam: Present: normal lung sounds bilaterally. Absent: respiratory distress, wheezes, rales, rhonchi, stridor Cardiovascular Exam: Present: regular rate, normal rhythm, normal heart sounds. Absent: systolic murmur, diastolic murmur, rubs, gallop, clicks GI/Abdominal exam: Present: soft, normal bowel sounds. Absent: distended, tenderness, guarding, rebound, rigid Neurological exam: Present: alert, oriented X3, CN II-XII intact Expanded Speech: Present: fluid speech Cranial nerves: EOM's Intact: Normal Motor strength exam: RUE: 5, LUE: 5, RLE: 5, LLE: 5 Eye Response: (4) open spontaneously Motor Response: (6) obeys commands Verbal Response: (5) oriented [place] Total: 15 Psychiatric exam: Present: normal affect, normal mood Skin exam: Present: warm, dry, intact, normal color. Absent: rash Course Vital Signs 12/27/20 12/27/20 10:07 12:07 Temperature 98.5 F 97.6 F Pulse Rate 73 60 Respiratory 16 16 Rate Blood Pressure 132/78 125/78 O2 Sat by Pulse 99 98 Oximetry Medical Decision Making - Medical Decision Making 25-year-old male patient presents to the emergency department today for evaluation after having 2 seizures. Patient does have a history of seizure disorder stopped his meds quite some time ago. Was previous and Dilantin. Physical examination is unremarkable. He is neurologically intact with no focal deficits. Labs are unremarkable. EKG was unremarkable. I did discuss findings and results with him. We will restart his Dilantin, he is given a 300 mg loading dose here. He'll be started on 200 mg twice a day. He is instructed to follow-up with his primary care physician for recheck as soon as possible. Instructed to follow-up with neurologist. Return parameters were discussed in detail. He verbalizes understanding and agrees with this plan. Case discussed with my attending Dr. Johnson. - Lab Data Result diagrams: 12/27/20 10:35 12/27/20 10:35 Lab Results 12/27/20 12/27/20 12/27/20 Range/Units 10:35 10:35 10:35 WBC 4.8 (3.8-10.6) k/uL RBC 5.19 (4.30-5.90) m/uL Hgb 15.0 (13.0-17.5) gm/dL Hct 45.5 (39.0-53.0) % MCV 87.6 (80.0-100.0) fL MCH 28.8 (25.0-35.0) pg MCHC 32.9 (31.0-37.0) g/dL RDW 12.9 (11.5-15.5) % Plt Count 280 (150-450) k/uL MPV 7.2 Neutrophils % 60 % Lymphocytes % 26 % Monocytes % 7 % Eosinophils % 5 % Basophils % 1 % Neutrophils # 2.9 (1.3-7.7) k/uL Lymphocytes # 1.2 (1.0-4.8) k/uL Monocytes # 0.3 (0-1.0) k/uL Eosinophils # 0.3 (0-0.7) k/uL Basophils # 0.0 (0-0.2) k/uL Sodium 141 (137-145) mmol/L Potassium 4.3 (3.5-5.1) mmol/L Chloride 108 H (98-107) mmol/L Carbon Dioxide 26 (22-30) mmol/L Anion Gap 7 mmol/L BUN 19 (9-20) mg/dL Creatinine 1.03 (0.66-1.25) mg/dL Est GFR (CKD-EPI)AfAm >90 (>60 ml/min/1.73 sqM) Est GFR (CKD-EPI)NonAf >90 (>60 ml/min/1.73 sqM) Glucose 95 (74-99) mg/dL Calcium 9.6 (8.4-10.2) mg/dL Total Bilirubin 0.4 (0.2-1.3) mg/dL AST 35 (17-59) U/L ALT 33 (4-49) U/L Alkaline Phosphatase 70 (38-126) U/L Total Protein 7.1 (6.3-8.2) g/dL Albumin 4.4 (3.5-5.0) g/dL Urine Color Yellow Urine Appearance Clear (Clear) Urine pH 5.5 (5.0-8.0) Ur Specific [place] 1.025 (1.001-1.035) Urine Protein Negative (Negative) Urine Glucose (UA) Negative (Negative) Urine Ketones Negative (Negative) Urine Blood Trace H (Negative) Urine Nitrite Negative (Negative) Urine Bilirubin Negative (Negative) Urine Urobilinogen <2.0 (<2.0) mg/dL Ur Leukocyte Esterase Negative (Negative) Urine RBC 1 (0-5) /hpf Urine WBC <1 (0-5) /hpf Urine Mucus Rare H (None) /hpf Urine Opiates Screen Not Detected (NotDetected) Ur Oxycodone Screen Not Detected (NotDetected) Urine Methadone Screen Not Detected (NotDetected) Ur Propoxyphene Screen Not Detected (NotDetected) Ur Barbiturates Screen Not Detected (NotDetected) U Tricyclic Antidepress Not Detected (NotDetected) Ur Phencyclidine Scrn Not Detected (NotDetected) Ur Amphetamines Screen Not Detected (NotDetected) U Methamphetamines Scrn Not Detected (NotDetected) U Benzodiazepines Scrn Not Detected (NotDetected) Urine Cocaine Screen Not Detected (NotDetected) U Marijuana (THC) Screen Not Detected (NotDetected) Disposition Clinical Impression: Seizure Disposition: HOME SELF-CARE Condition: Good Instructions (If sedation given, give patient instructions): Recurrent Seizures in Adults (ED) Additional Instructions: Take medications as directed. Follow up through primary care physician and neurologist for further evaluation as soon as possible and for dosage adjustment on your medication if necessary. Return to the emergency department for any new, worsening, or concerning symptoms. Prescriptions: Phenytoin Sodium Extended [Dilantin] 200 mg PO BID #120 capsule Is patient prescribed a controlled substance at d/c from ED?: No Referrals: Tim Trinidad MD [Primary Care Provider] - 1-2 days Time of Disposition: 11:59
[2020-12-27 12:08] VITALS: BP 125/78; PULSE 60; TEMP 97.6
== END 2020-12-27 12:18 | disposition home or self-care (01) ==
LOC: EC 10:05
DX: R56.9 Unspecified convulsions (principal); F17.200 Nicotine dependence, unspecified, uncomplicated; F41.9 Anxiety disorder, unspecified; F32.9 Major depressive disorder, single episode, unspecified
CPT/HCPCS: 36415; 93005; 80053; 85025; 81001; 80306; 72072; 72110; 99284; 96374; 96361; J1885

== ENCOUNTER 2021-01-11 08:45 | Emergency (ER) | payer OTHER ==
[2021-01-11 08:52] VITALS: TEMP 98
--- NOTE | 2021-01-11 09:53 | XR ---
EXAMINATION TYPE: XR chest 2V DATE OF EXAM: 01/11/2021 COMPARISON: 08/27/2020 HISTORY: Chest pain TECHNIQUE: Frontal and lateral views of the chest are obtained. FINDINGS: There is no focal air space opacity. No evidence for pneumothorax. No pleural effusion. The cardiac silhouette size is within normal limits. The osseous structures are grossly intact. IMPRESSION: 1. No acute cardiopulmonary process.
--- NOTE | 2021-01-11 10:26 | ED ---
URI HPI - General Chief Complaint: Upper Respiratory Infection Stated Complaint: CHEST PAIN, COUGH Time Seen by Provider: 01/11/21 10:10 Source: patient, RN notes reviewed Mode of arrival: ambulatory Limitations: no limitations - History of Present Illness Initial Comments: 25-year-old male presents emergency Department with chief complaint of cough con gestion for last 4-5 days. Patient had outpatient PCR Covid testing which was negative. Patient states that he didn't want come in the hospital. Patient states that he now negative presents today for rib pain with coughing. He states it radiates to his right side of his chest. No prior cardiac or lung disease. Denies any significant fevers chills nausea and diarrhea constipation. Patient denies sick contacts. - Related Data Previous Rx's Medication Instructions Recorded Phenytoin Sodium Extended 200 mg PO BID #120 capsule 12/27/20 [Dilantin] Ibuprofen [Motrin] 600 mg PO Q8HR PRN #20 tab 01/11/21 Allergies Allergy/AdvReac Type Severity Reaction Status Date / Time alprazolam [From Xanax] AdvReac DOESN'T Verified 01/11/21 08:49 WANT morphine AdvReac DOESN'T Verified 01/11/21 08:49 WANT Review of Systems ROS Statement: Those systems with pertinent positive or pertinent negative responses have been documented in the HPI. ROS Other: All systems not noted in ROS Statement are negative. Past Medical History Past Medical History: Seizure Disorder Additional Past Medical History / Comment(s): tricuspid valve problems, PSEUDOSEIZURES, History of Any Multi-Drug Resistant Organisms: None Reported Past Surgical History: Appendectomy, Orthopedic Surgery Additional Past Surgical History / Comment(s): testicular torsion correction, Past Psychological History: ADD/ADHD, Anxiety, Bipolar, Depression, Schizophrenia Smoking Status: Former smoker Past Alcohol Use History: None Reported Past Drug Use History: None Reported General Exam Limitations: no limitations General appearance: alert, in no apparent distress Head exam: Present: atraumatic, normocephalic, normal inspection Eye exam: Present: normal appearance, PERRL, EOMI. Absent: scleral icterus, conjunctival injection, periorbital swelling ENT exam: Present: normal exam, normal oropharynx, mucous membranes moist Neck exam: Present: normal inspection, full ROM. Absent: tenderness, meningismus, lymphadenopathy Respiratory exam: Present: normal lung sounds bilaterally, chest wall tenderness (Right-sided). Absent: respiratory distress, wheezes, rales, rhonchi, stridor Cardiovascular Exam: Present: regular rate, normal rhythm, normal heart sounds. Absent: systolic murmur, diastolic murmur, rubs, gallop, clicks GI/Abdominal exam: Present: soft, normal bowel sounds. Absent: distended, tenderness, guarding, rebound, rigid Neurological exam: Present: alert, oriented X3, CN II-XII intact, reflexes normal. Absent: motor sensory deficit Course Vital Signs 01/11/21 01/11/21 08:49 09:57 Temperature 98 F Pulse Rate 62 Respiratory 18 16 Rate Blood Pressure 142/81 O2 Sat by Pulse 100 Oximetry Medical Decision Making - Medical Decision Making Chest x-rays unremarkable, EKG does not show acute changes. Patient has upper extremity infection with reproducible right-sided rib tenderness. Patient will be discharged in stable condition with anti-inflammatories return parameters were discussed. - EKG Data -: EKG Interpreted by Me EKG Comments: EKG performed at 8:59 sinus bradycardia with rate of 57 CO 158 QRS 96 QT/QTC 410/399 Disposition Clinical Impression: Acute upper respiratory infection, Costochondritis, acute Disposition: HOME SELF-CARE Condition: Stable Instructions (If sedation given, give patient instructions): Upper Respiratory Infection (ED) Additional Instructions: Please return to the Emergency Department if symptoms worsen or any other concerns. Prescriptions: Ibuprofen [Motrin] 600 mg PO Q8HR PRN #20 tab PRN Reason: Pain Is patient prescribed a controlled substance at d/c from ED?: No Referrals: Tim Trinidad MD [Primary Care Provider] - 1-2 days Time of Disposition: 10:25
[2021-01-11 10:38] VITALS: BP 120/61; PULSE 67; RESP 18
== END 2021-01-11 10:54 | disposition home or self-care (01) ==
LOC: EC 08:45
DX: J06.9 Acute upper respiratory infection, unspecified (principal); M94.0 Chondrocostal junction syndrome [Tietze]; F41.9 Anxiety disorder, unspecified; F32.9 Major depressive disorder, single episode, unspecified; F90.9 Attention-deficit hyperactivity disorder, unspecified type; F20.9 Schizophrenia, unspecified; G40.909 Epilepsy, unspecified, not intractable, without status epilepticus; Z87.891 Personal history of nicotine dependence
CPT/HCPCS: 71046; 93005; 99285

== ENCOUNTER 2021-03-05 16:00 | Emergency (ER) | payer OTHER ==
[2021-03-05] MEDS ORDERED: SODIUM CHLORIDE 0.9% 1,000 ML IV STA (16:13)
[2021-03-05 17:00] VITALS: RESP 16; TEMP 98.7
[2021-03-05 17:02] LABS: Basophils % (A) 1 %; Eosinophils # (A) 0.3 k/uL (0-0.7); Eosinophils % (A) 4 %; HCT 42.4 % (39.0-53.0); HGB 14.5 gm/dL (13.0-17.5); Lymphocytes # (A) 1.5 k/uL (1.0-4.8); Lymphocytes % (A) 19 %; MCH 29.1 pg (25.0-35.0); MCHC 34.2 g/dL (31.0-37.0); MCV 85.1 fL (80.0-100.0); Mean Platelet Volume 7.3; Monocytes # (A) 0.5 k/uL (0-1.0); Monocytes % (A) 7 %; Neutrophils # (A) 5.3 k/uL (1.3-7.7); Neutrophils % (A) 69 %; Platelet Count 249 k/uL (150-450); RBC 4.98 m/uL (4.30-5.90); RDW 12.8 % (11.5-15.5); WBC 7.6 k/uL (3.8-10.6)
[2021-03-05 17:16] LABS: ALT 21 U/L (4-49); AST 27 U/L (17-59); African American GFR (CKD) >90 (>60 ml/min/1.73 sqM); Albumin 4.1 g/dL (3.5-5.0); Alkaline Phosphatase 73 U/L (38-126); Anion Gap 8 mmol/L; Blood Urea Nitrogen 13 mg/dL (9-20); Calcium 9.2 mg/dL (8.4-10.2); Carbon Dioxide 20 mmol/L (22-30); Chloride 110 mmol/L (98-107); Glucose 90 mg/dL (74-99); Non-African American GFR(CKD) 86 (>60 ml/min/1.73 sqM); Phenytoin (Dilantin) <3.0 ug/mL; Potassium 3.8 mmol/L (3.5-5.1); Sodium 138 mmol/L (137-145); Total Bilirubin 0.6 mg/dL (0.2-1.3); Total Protein 6.7 g/dL (6.3-8.2)
--- NOTE | 2021-03-05 17:49 | XR ---
EXAMINATION TYPE: XR shoulder complete RT DATE OF EXAM: 03/05/2021 CLINICAL HISTORY: pain TECHNIQUE: Three views of the right shoulder are obtained. COMPARISON: None FINDINGS: There is no acute fracture/dislocation evident. The acromioclavicular and glenohumeral dina int spaces appear within normal limits. The visualized ribs are intact and unremarkable. IMPRESSION: 1. There is no acute fracture or dislocation. ICD 10 NO FRACTURE, INITIAL EVALUATION
--- NOTE | 2021-03-05 17:52 | ED ---
Seizure HPI - General Chief Complaint: Seizure Stated Complaint: Seizure Time Seen by Provider: 03/05/21 16:12 Source: patient, family, EMS Mode of arrival: EMS Limitations: no limitations - History of Present Illness Initial Comments: 25-year-old male presents to emergency Department with a chief complaint of a seizure. Patient reports he has history of pseudoseizures and today he had a witnessed seizure by his the last approximately 3 minutes. States this was tonic-clonic movements but there was no loss of bowel or bladder control. Patient denies any biting to the tongue. Patient also reports that he is developing some right shoulder pain after the seizure, he believes he hit it against an object. He does not take any antiepileptic medications at this time. States he did take Dilantin several years ago. Has no other complaints. - Related Data Previous Rx's Medication Instructions Recorded Phenytoin Sodium Extended 200 mg PO BID #120 capsule 12/27/20 [Dilantin] Ibuprofen [Motrin] 600 mg PO Q8HR PRN #20 tab 01/11/21 Allergies Allergy/AdvReac Type Severity Reaction Status Date / Time alprazolam [From Xanax] AdvReac DOESN'T Verified 01/11/21 08:49 WANT morphine AdvReac DOESN'T Verified 01/11/21 08:49 WANT Review of Systems ROS Statement: Those systems with pertinent positive or pertinent negative responses have been documented in the HPI. ROS Other: All systems not noted in ROS Statement are negative. Past Medical History Past Medical History: Seizure Disorder Additional Past Medical History / Comment(s): tricuspid valve problems, PSEUDOSEIZURES, History of Any Multi-Drug Resistant Organisms: None Reported Past Surgical History: Appendectomy, Orthopedic Surgery Additional Past Surgical History / Comment(s): testicular torsion correction, Past Psychological History: ADD/ADHD, Anxiety, Bipolar, Depression, Schizophrenia Smoking Status: Former smoker Past Alcohol Use History: None Reported Past Drug Use History: None Reported General Exam Limitations: no limitations General appearance: alert, in no apparent distress Head exam: Present: atraumatic, normocephalic, normal inspection Eye exam: Present: normal appearance, PERRL, EOMI Pupils: Present: normal accommodation ENT exam: Present: normal exam, normal oropharynx, mucous membranes moist, TM's normal bilaterally, normal external ear exam Neck exam: Present: normal inspection, full ROM. Absent: tenderness Respiratory exam: Present: normal lung sounds bilaterally. Absent: respiratory distress, wheezes, rales, rhonchi, stridor, chest wall tenderness, accessory muscle use Cardiovascular Exam: Present: regular rate, normal rhythm, normal heart sounds. Absent: systolic murmur Extremities exam: Present: normal inspection, full ROM, tenderness (Mild right deltoid tenderness), normal capillary refill. Absent: pedal edema, joint swelling Back exam: Present: normal inspection, full ROM. Absent: tenderness, CVA tenderness (R), CVA tenderness (L) Neurological exam: Present: alert, oriented X3, CN II-XII intact, normal gait Psychiatric exam: Present: normal affect, normal mood Skin exam: Present: warm, dry, intact, normal color Course Vital Signs 03/05/21 16:00 Temperature 98.7 F Pulse Rate 96 Respiratory 16 Rate Blood Pressure 153/78 O2 Sat by Pulse 98 Oximetry Medical Decision Making - Medical Decision Making 25-year-old male with history of pseudoseizures presents emergency Department with a chief complaint of a seizure. Physical examination is unremarkable. CBC CMP unremarkable. Lactic acid within normal limits. UA is also unremarkable. EKG showing no acute ischemic changes. Case discussed with Dr. Maravilla. Patient will be discharged with outpatient follow-up. Return parameters discussed. - Lab Data Result diagrams: 03/05/21 16:13 03/05/21 16:13 Lab Results 03/05/21 03/05/21 03/05/21 Range/Units 16:13 16:13 16:13 WBC 7.6 (3.8-10.6) k/uL RBC 4.98 (4.30-5.90) m/uL Hgb 14.5 (13.0-17.5) gm/dL Hct 42.4 (39.0-53.0) % MCV 85.1 (80.0-100.0) fL MCH 29.1 (25.0-35.0) pg MCHC 34.2 (31.0-37.0) g/dL RDW 12.8 (11.5-15.5) % Plt Count 249 (150-450) k/uL MPV 7.3 Neutrophils % 69 % Lymphocytes % 19 % Monocytes % 7 % Eosinophils % 4 % Basophils % 1 % Neutrophils # 5.3 (1.3-7.7) k/uL Lymphocytes # 1.5 (1.0-4.8) k/uL Monocytes # 0.5 (0-1.0) k/uL Eosinophils # 0.3 (0-0.7) k/uL Basophils # 0.0 (0-0.2) k/uL Sodium 138 (137-145) mmol/L Potassium 3.8 (3.5-5.1) mmol/L Chloride 110 H (98-107) mmol/L Carbon Dioxide 20 L (22-30) mmol/L Anion Gap 8 mmol/L BUN 13 (9-20) mg/dL Creatinine 1.17 (0.66-1.25) mg/dL Est GFR (CKD-EPI)AfAm >90 (>60 ml/min/1.73 sqM) Est GFR (CKD-EPI)NonAf 86 (>60 ml/min/1.73 sqM) Glucose 90 (74-99) mg/dL Plasma Lactic Acid Walter 0.9 (0.7-2.0) mmol/L Calcium 9.2 (8.4-10.2) mg/dL Total Bilirubin 0.6 (0.2-1.3) mg/dL AST 27 (17-59) U/L ALT 21 (4-49) U/L Alkaline Phosphatase 73 (38-126) U/L Total Protein 6.7 (6.3-8.2) g/dL Albumin 4.1 (3.5-5.0) g/dL Phenytoin <3.0 ug/mL - EKG Data EKG Comments: Sinus arrhythmia Return to the right 83, RI 158, QRS 92, QTC 440. Disposition Clinical Impression: Pseudoseizure Disposition: HOME SELF-CARE Condition: Stable Instructions (If sedation given, give patient instructions): Recurrent Seizures in Adults (ED) Additional Instructions: Please return to the Emergency Department if symptoms worsen or any other concerns. Is patient prescribed a controlled substance at d/c from ED?: No Referrals: Tim Trinidad MD [Primary Care Provider] - 1-2 days Time of Disposition: 18:29
[2021-03-05 18:38] VITALS: BP 131/63; PULSE 63
== END 2021-03-05 18:38 | disposition home or self-care (01) ==
LOC: EC 16:00
DX: G40.909 Epilepsy, unspecified, not intractable, without status epilepticus (principal); Z87.891 Personal history of nicotine dependence
CPT/HCPCS: 36415; 80053; 80185; 83605; 85025; 93005; 96360; 99284

== ENCOUNTER 2021-03-19 14:24 | Emergency (ER) | payer OTHER ==
[2021-03-19 14:32] VITALS: BP 122/70; PULSE 104; RESP 20; TEMP 98.4
--- NOTE | 2021-03-19 15:29 | ED ---
General Adult HPI - General Chief complaint: Seizure Stated complaint: Poss seizure Time Seen by Provider: 03/19/21 14:47 Source: patient, EMS Mode of arrival: EMS Limitations: no limitations - History of Present Illness Initial comments: Patient is a 25-year-old male presenting to the emergency department via EMS after having what he thinks are pseudoseizures. Patient states he was here couple weeks ago for same thing, had a full workup, no acute findings. Patient states he has been under a lot of stress lately with his work and home life. He states today while he was at work he thinks he had a few pseudoseizures, and his coworkers called EMS. He denies any falls or trauma. He states he believes these are caused by stress and does have an appointment with [facility] tomorrow to talk to a psychologist. He denies any suicidal or homicidal thoughts. He states that he would like to just go home. He has been eating and drinking as normal, no fevers or chills. He denies current headache, no dizziness or blurry vision. No abdominal pain, no nausea or vomiting. He has no further complaints at this time. - Related Data Previous Rx's Medication Instructions Recorded Phenytoin Sodium Extended 200 mg PO BID #120 capsule 12/27/20 [Dilantin] Ibuprofen [Motrin] 600 mg PO Q8HR PRN #20 tab 01/11/21 Allergies Allergy/AdvReac Type Severity Reaction Status Date / Time alprazolam [From Xanax] AdvReac DOESN'T Verified 01/11/21 08:49 WANT morphine AdvReac DOESN'T Verified 01/11/21 08:49 WANT Review of Systems ROS Statement: Those systems with pertinent positive or pertinent negative responses have been documented in the HPI. ROS Other: All systems not noted in ROS Statement are negative. Past Medical History Past Medical History: Seizure Disorder Additional Past Medical History / Comment(s): tricuspid valve problems, PSEUDOSEIZURES, History of Any Multi-Drug Resistant Organisms: None Reported Past Surgical History: Appendectomy, Orthopedic Surgery Additional Past Surgical History / Comment(s): testicular torsion correction, Past Psychological History: ADD/ADHD, Anxiety, Bipolar, Depression, Schizophrenia Smoking Status: Former smoker Past Alcohol Use History: None Reported Past Drug Use History: None Reported General Exam - General Exam Comments Initial Comments: GENERAL: Patient is well-developed and well-nourished. Patient is nontoxic and in no acute distress. HEAD: Atraumatic, normocephalic. No hematomas, no signs of basal skull fracture. EYES: Pupils equal round and reactive to light, extraocular movements intact, sclera anicteric, conjunctiva are normal. Eyelids were unremarkable. ENT: TMs normal, nares patent, oropharynx clear without exudates. Moist mucous membranes. NECK: Normal range of motion, supple without lymphadenopathy or JVD. No midline tenderness. LUNGS: Unlabored respirations. Breath sounds clear to auscultation bilaterally and equal. No wheezes rales or rhonchi. HEART: Regular rate and rhythm without murmurs, rubs or gallops. ABDOMEN: Soft, nontender, normoactive bowel sounds. No guarding, no rebound. No masses appreciated. : Deferred MUSCULOSKELETAL: Normal extremities with adequate strength and normal range of motion, no pitting or edema. No clubbing or cyanosis. NEUROLOGICAL: Patient is alert and oriented x 3. Motor and sensory are also intact. Cranial nerves II through XII grossly intact. Symmetrical smile. Normal speech, normal gait. PSYCH: Normal mood, normal affect. SKIN: Warm, Dry, normal turgor, no rashes or lesions noted. Limitations: no limitations Course Vital Signs 03/19/21 14:29 Temperature 98.4 F Pulse Rate 104 H Respiratory 20 Rate Blood Pressure 122/70 O2 Sat by Pulse 98 Oximetry Medical Decision Making - Medical Decision Making Patient is a 25-year-old male with history of pseudoseizures presenting via EMS after having a few "pseudoseizures" at work. He states he's been under a lot of stress lately with his job and home life and feels like his stress increases his risk for the seizures. He denies any suicidal or homicidal thoughts. Patient states he just had a complete workup including blood work a week and a half ago, he states he does not want any labs or imaging done today. His vital signs are stable, his exam is unremarkable. He states he feels better and just wants to go home and rest. Patient's is coming to get him. Patient has not been driving. He is stable for discharge. Return parameters were discussed with the patient and he verbalized understanding. Case discussed with Dr. Kay. Disposition Clinical Impression: Pseudoseizure Disposition: HOME SELF-CARE Condition: Stable Instructions (If sedation given, give patient instructions): Normal Exam (ED) Additional Instructions: Please return to the Emergency Department if symptoms worsen or any other concerns. Follow up with [facility] tomorrow as discussed. Is patient prescribed a controlled substance at d/c from ED?: No Referrals: Tim Trinidad MD [Primary Care Provider] - 1-2 days Time of Disposition: 15:29
== END 2021-03-19 15:45 | disposition home or self-care (01) ==
LOC: EC 14:24
DX: G40.909 Epilepsy, unspecified, not intractable, without status epilepticus (principal); F32.9 Major depressive disorder, single episode, unspecified; Z87.891 Personal history of nicotine dependence; Z90.89 Acquired absence of other organs
CPT/HCPCS: 99284

== ENCOUNTER 2021-03-23 11:08 | Emergency (ER) | payer OTHER ==
--- NOTE | 2021-03-23 13:00 | XR ---
EXAMINATION TYPE: XR chest 2V DATE OF EXAM: 03/23/2021 COMPARISON: Chest x-ray January 11, 2021 HISTORY: Shortness of breath TECHNIQUE: Frontal and lateral views of the chest are obtained. FINDINGS: There is no suspicious new focal air space opacity, pleural effusion, or pneumothorax seen . The cardiac silhouette size is stable and within normal limits. The osseous structures are intac t. IMPRESSION: No acute cardiopulmonary process. No significant change from prior.
--- NOTE | 2021-03-23 13:46 | ED ---
General Adult HPI - General Chief complaint: Upper Respiratory Infection Stated complaint: pain all over Time Seen by Provider: 03/23/21 13:22 Source: patient Mode of arrival: ambulatory Limitations: no limitations - History of Present Illness Initial comments: 25-year-old male with past medical history of childhood asthma, seizure disorder presents to the emergency room for a chief complaint of cough. Patient reports he has had a cough for about 2 days as well as slightly sore throat and a headache. Denies shortness of breath. Denies chest pain aside from slight pain when coughing. Patient has not had any fevers that he is aware of.Patient has no other complaints at this time including shortness of breath, chest pain, abdominal pain, nausea or vomiting, headache, or visual changes. - Related Data Previous Rx's Medication Instructions Recorded Phenytoin Sodium Extended 200 mg PO BID #120 capsule 12/27/20 [Dilantin] Ibuprofen [Motrin] 600 mg PO Q8HR PRN #20 tab 01/11/21 Albuterol Inhaler [Ventolin Hfa 2 puff INHALATION RT-QID PRN #1 03/23/21 Inhaler] inhaler guaiFENesin [Mucinex] 600 mg PO Q12HR PRN #20 tablet.er 03/23/21 predniSONE 50 mg PO DAILY #5 tablet 03/23/21 Allergies Allergy/AdvReac Type Severity Reaction Status Date / Time alprazolam [From Xanax] AdvReac DOESN'T Verified 03/23/21 11:55 WANT morphine AdvReac DOESN'T Verified 03/23/21 11:55 WANT Review of Systems ROS Statement: Those systems with pertinent positive or pertinent negative responses have been documented in the HPI. ROS Other: All systems not noted in ROS Statement are negative. Past Medical History Past Medical History: Seizure Disorder Additional Past Medical History / Comment(s): tricuspid valve problems, PSEUDOSEIZURES, History of Any Multi-Drug Resistant Organisms: None Reported Past Surgical History: Appendectomy, Orthopedic Surgery Additional Past Surgical History / Comment(s): testicular torsion correction, Past Psychological History: ADD/ADHD, Anxiety, Bipolar, Depression, Schizophrenia Smoking Status: Current every day smoker Past Alcohol Use History: Occasional Past Drug Use History: Marijuana General Exam Limitations: no limitations General appearance: alert, in no apparent distress Head exam: Present: atraumatic, normocephalic, normal inspection Eye exam: Present: normal appearance, PERRL, EOMI. Absent: scleral icterus, conjunctival injection, periorbital swelling ENT exam: Present: normal exam, mucous membranes moist Neck exam: Present: normal inspection, full ROM. Absent: tenderness, meningismus, lymphadenopathy Respiratory exam: Present: normal lung sounds bilaterally, wheezes (Very slight wheeze the lung bases). Absent: respiratory distress, rales, rhonchi, stridor Cardiovascular Exam: Present: regular rate, normal rhythm, normal heart sounds. Absent: systolic murmur, diastolic murmur, rubs, gallop, clicks GI/Abdominal exam: Present: soft, normal bowel sounds. Absent: distended, tenderness, guarding, rebound, rigid Course Vital Signs 03/23/21 03/23/21 11:52 13:37 Temperature 98.5 F Pulse Rate 66 Respiratory 18 20 Rate Blood Pressure 124/81 O2 Sat by Pulse 97 Oximetry Medical Decision Making - Medical Decision Making Vitals are stable. Patient is well-appearing. Physical exam reveals only minimal wheezing in the bilateral lung bases. No respiratory distress. Coronavirus is negative. Chest x-ray shows no acute cardiopulmonary process. Given his remote history of asthma patient will be treated with steroid and inhaler. He will also be given mucinex. Will return here for any worsening symptoms. Will otherwise follow up with primary care. - Lab Data Lab Results 03/23/21 Range/Units 11:56 Coronavirus (PCR) Not Detected (Not Detectd) Disposition Clinical Impression: Cough Disposition: HOME SELF-CARE Condition: Good Instructions (If sedation given, give patient instructions): Acute Cough (ED) Additional Instructions: Please take medications as directed. Follow up with your doctor in 1-2 days. Return to the emergency room for any worsening symptoms. Prescriptions: guaiFENesin [Mucinex] 600 mg PO Q12HR PRN #20 tablet.er PRN Reason: Congestion predniSONE 50 mg PO DAILY #5 tablet Albuterol Inhaler [Ventolin Hfa Inhaler] 2 puff INHALATION RT-QID PRN #1 inhaler PRN Reason: Shortness Of Breath Is patient prescribed a controlled substance at d/c from ED?: No Referrals: Tim Trinidad MD [Primary Care Provider] - 1-2 days Time of Disposition: 13:45
[2021-03-23 13:56] VITALS: BP 124/78; PULSE 64; RESP 16; TEMP 98.1
== END 2021-03-23 13:55 | disposition home or self-care (01) ==
LOC: EC 11:08
DX: R05 Cough (principal); R52 Pain, unspecified; J45.909 Unspecified asthma, uncomplicated; G40.909 Epilepsy, unspecified, not intractable, without status epilepticus; F41.9 Anxiety disorder, unspecified; F31.9 Bipolar disorder, unspecified; F90.9 Attention-deficit hyperactivity disorder, unspecified type; F20.9 Schizophrenia, unspecified; F17.200 Nicotine dependence, unspecified, uncomplicated; F12.90 Cannabis use, unspecified, uncomplicated; Z79.51 Long term (current) use of inhaled steroids; Z20.822 Contact with and (suspected) exposure to COVID-19
CPT/HCPCS: 71046; 87635; 99285

== ENCOUNTER 2021-03-30 01:10 | Emergency (ER) | payer OTHER ==
[2021-03-30 01:15] VITALS: RESP 20; TEMP 98
[2021-03-30 01:57] LABS: Appearance,Urine Clear (Clear); Color,Urine Yellow; PH, Urine 5.5 (5.0-8.0); Specific Gravity,Urine >1.030 (1.001-1.035)
[2021-03-30 01:58] LABS: Bilirubin,Urine Negative (Negative); Blood,Urine Trace (Negative); Glucose,Urine (UA) Negative (Negative); Ketones,Urine Trace (Negative); Leukocyte Esterase,Urine Moderate (Negative); Nitrite,Urine Negative (Negative); Protein,Urine 1+ (Negative)
--- NOTE | 2021-03-30 01:59 | ED ---
URI HPI - General Chief Complaint: Upper Respiratory Infection Stated Complaint: Abdominal Pain Time Seen by Provider: 03/30/21 01:20 Source: patient Mode of arrival: ambulatory Limitations: no limitations - History of Present Illness Initial Comments: Patient is a 25-year-old male presenting to the emergency department with complaints of cough, congestion over the past week. He is also complaining of some mild abdominal discomfort. He states he has been producing phlegm with this coughs, he has some mild burning in his chest only when he coughs, no chest pain or shortness of breath. He states his abdominal pain is mostly on the upper side, near his lower ribs. He states he has been coughing a lot and thinks the soreness is from that. No lower abdominal pain, no diarrhea. He denies any fevers or chills. He denies history of asthma, he is an occasional smoker. He does have concerns for possible Covid. He also thinks he is dehydrated, he states she's been drinking a lot of water but "his urine is still dark." Patient has no further complaints at this time. Upon arrival to the ER, his vitals are stable. - Related Data Previous Rx's Medication Instructions Recorded Phenytoin Sodium Extended 200 mg PO BID #120 capsule 12/27/20 [Dilantin] Ibuprofen [Motrin] 600 mg PO Q8HR PRN #20 tab 01/11/21 Albuterol Inhaler [Ventolin Hfa 2 puff INHALATION RT-QID PRN #1 03/23/21 Inhaler] inhaler guaiFENesin [Mucinex] 600 mg PO Q12HR PRN #20 tablet.er 03/23/21 predniSONE 50 mg PO DAILY #5 tablet 03/23/21 Azithromycin [Zithromax Z-pack (6 0 mg PO DIRECTED #1 pack 03/30/21 tabs)] Allergies Allergy/AdvReac Type Severity Reaction Status Date / Time alprazolam [From Xanax] AdvReac DOESN'T Verified 03/30/21 01:15 WANT morphine AdvReac DOESN'T Verified 03/30/21 01:15 WANT Review of Systems ROS Statement: Those systems with pertinent positive or pertinent negative responses have been documented in the HPI. ROS Other: All systems not noted in ROS Statement are negative. Past Medical History Past Medical History: Seizure Disorder Additional Past Medical History / Comment(s): tricuspid valve problems, PSEUDOSEIZURES, History of Any Multi-Drug Resistant Organisms: None Reported Past Surgical History: Appendectomy, Orthopedic Surgery Additional Past Surgical History / Comment(s): testicular torsion correction, Past Psychological History: ADD/ADHD, Anxiety, Bipolar, Depression, Schiz ophrenia Smoking Status: Current every day smoker Past Alcohol Use History: Occasional Past Drug Use History: Marijuana General Exam - General Exam Comments Initial Comments: GENERAL: Patient is well-developed and well-nourished. Patient is nontoxic and in no acute distress. HEAD: Atraumatic, normocephalic. EYES: Pupils equal round and reactive to light, extraocular movements intact, sclera anicteric, conjunctiva are normal. Eyelids were unremarkable. ENT: TMs normal, nares patent, oropharynx clear without exudates. Moist mucous membranes. NECK: Normal range of motion, supple without lymphadenopathy or JVD. LUNGS: Unlabored respirations. Breath sounds clear to auscultation bilaterally and equal. No wheezes rales or rhonchi. HEART: Regular rate and rhythm without murmurs, rubs or gallops. ABDOMEN: Soft, nontender, normoactive bowel sounds. No guarding, no rebound. No masses appreciated. : Deferred MUSCULOSKELETAL: Normal extremities with adequate strength and normal range of motion, no pitting or edema. No clubbing or cyanosis. NEUROLOGICAL: Patient is alert and oriented x 3. Motor and sensory are also intact. Cranial nerves II through XII grossly intact. Symmetrical smile. Normal speech, normal gait. PSYCH: Normal mood, normal affect. SKIN: Warm, Dry, normal turgor, no rashes or lesions noted. Limitations: no limitations Course Vital Signs 03/30/21 03/30/21 01:14 01:21 Temperature 98.0 F Pulse Rate 84 Respiratory 20 20 Rate Blood Pressure 132/76 O2 Sat by Pulse 97 Oximetry Medical Decision Making - Medical Decision Making Patient is a 25-year-old male here for concerns of Covid, cough and congestion for the past week, some mild abdominal discomfort. His vital signs are stable, afebrile. His exam is within normal limits. Chest x-ray shows no acute process, Covid is negative. Patient's urine did have 29 wbc's, moderate leukocyte Estrace. He denies having any symptoms such as dysuria, discharge. Patient's is in the room with him. Patient has no concerns for STDs. I will add on gonorrhea, chlamydia, trichomonas, urine culture is pending. Patient will be prescribed Z-Quinten for his upper respiratory infection. He will elevate the urine culture testing for further treatment of possible UTI. Patient is stable for discharge and he is in agreement with this plan of care. Return parameters were discussed with him and he verbalized understanding. Case discussed with Dr. Francois. - Lab Data Lab Results 03/30/21 03/30/21 Range/Units 01:33 01:39 Urine Color Yellow Urine Appearance Clear (Clear) Urine pH 5.5 (5.0-8.0) Ur Specific [place] >1.030 (1.001-1.035) Urine Protein 1+ (Negative) Urine Glucose (UA) Negative (Negative) Urine Ketones Trace (Negative) Urine Blood Trace (Negative) Urine Nitrite Negative (Negative) Urine Bilirubin Negative (Negative) Urine Urobilinogen 2.0 (<2.0) mg/dL Ur Leukocyte Esterase Moderate (Negative) Urine RBC 2 (0-5) /hpf Urine WBC 29 H (0-5) /hpf Ur Squamous Epith Cells 2 (0-4) /hpf Hyaline Casts 1 (0-2) /lpf Urine Mucus Many H (None) /hpf Coronavirus (PCR) Not Detected (Not Detectd) Disposition Clinical Impression: Upper respiratory tract infection, Asymptomatic bacteriuria Disposition: HOME SELF-CARE Condition: Stable Instructions (If sedation given, give patient instructions): Upper Respiratory Infection (ED) Additional Instructions: Please return to the Emergency Department if symptoms worsen or any other concerns. Take antibiotic as prescribed. Please follow-up with your primary care physician. Prescriptions: Azithromycin [Zithromax Z-pack (6 tabs)] 0 mg PO DIRECTED #1 pack Is patient prescribed a controlled substance at d/c from ED?: No Referrals: Tim Trinidad MD [Primary Care Provider] - 1-2 days Time of Disposition: 03:06
[2021-03-30 02:04] LABS: Hyaline Casts,Urine 1 /lpf (0-2); Mucus,Urine Many /hpf; RBC,Urine 2 /hpf (0-5); Squamous Epithelial Cell,Urine 2 /hpf (0-4); WBC,Urine 29 /hpf (0-5)
--- NOTE | 2021-03-30 02:06 | XR ---
EXAM: XR Chest, 2 Views CLINICAL HISTORY: ITS.REASON XR Reason: cough TECHNIQUE: Frontal and lateral views of the chest. COMPARISON: March 23, 2021 FINDINGS: Lungs: Unremarkable. No consolidation. Pleural space: Unremarkable. No pneumothorax. Heart: Unremarkable. No cardiomegaly. Mediastinum: Unremarkable. Bones/joints: Unremarkable. IMPRESSION: Normal chest x-rays.
[2021-03-30 03:23] VITALS: BP 130/78; PULSE 85
[2021-03-31 15:59] LABS: C. trachomatis,PCR Negative (Neg,Equiv); Chlamydia trachomatis Source Urine; N. gonorrhoeae,PCR Negative (Neg,Equiv); Neisseria Source Urine
== END 2021-03-30 03:23 | disposition home or self-care (01) ==
LOC: EC 01:10
DX: J06.9 Acute upper respiratory infection, unspecified (principal); R82.71 Bacteriuria; F17.200 Nicotine dependence, unspecified, uncomplicated; Z88.5 Allergy status to narcotic agent; Z88.8 Allergy status to other drugs, medicaments and biological substances; Z20.822 Contact with and (suspected) exposure to COVID-19
CPT/HCPCS: 71046; 81001; 87086; 87491; 87591; 87635; 99284

== ENCOUNTER 2021-04-16 | Emergency (ER) | payer OTHER | END 2021-04-16 14:45 | disposition home or self-care (01) | CPT/HCPCS: 36415; 80053; 80143; 80306; 81003; 82150; 82550; 83690; 84484; 85025; 93005; 96360; 99285 ==

== ENCOUNTER 2021-04-20 01:50 | Emergency (ER) | payer OTHER ==
[2021-04-20 02:43] LABS: Amphetamine Screen,Urine Detected (NotDetected); Barbiturate Screen,Urine Not Detected (NotDetected); Benzodiazepines Screen,Urine Not Detected (NotDetected); Cocaine Screen,Urine Not Detected (NotDetected); Methadone Screen, Urine Not Detected (NotDetected); Opiate Screen,Urine Not Detected (NotDetected); Oxycodone Screen, Urine Not Detected (NotDetected); Phencyclidine Screen,Urine Not Detected (NotDetected); Tricyclic Antidepressant,Urine Not Detected (NotDetected); Urn Cannabinoid Scrn Detected (NotDetected)
--- NOTE | 2021-04-20 02:44 | ED ---
Psych HPI - General Chief Complaint: Psychiatric Symptoms Stated Complaint: Mental Health Time Seen by Provider: 04/20/21 02:01 Source: EMS Mode of arrival: EMS - History of Present Illness Initial Comments: This patient is a 25-year-old man presenting with depression and some suicidal thoughts. The patient states mainly related to the fact that he has been using more drugs than he feels is appropriate. MD Complaint: feels depressed -: days(s) Associated Psychiatric Symptoms: depression, suicidal ideation Quality: getting worse Improves With: none Worsens With: drug use Context: recent drug abuse - Related Data Home Medications Medication Instructions Recorded Confirmed No Known Home Medications 04/16/21 04/16/21 Allergies Allergy/AdvReac Type Severity Reaction Status Date / Time alprazolam [From Xanax] AdvReac DOESN'T Verified 04/20/21 02:00 WANT morphine AdvReac DOESN'T Verified 04/20/21 02:00 WANT Review of Systems ROS Statement: Those systems with pertinent positive or pertinent negative responses have been documented in the HPI. ROS Other: All systems not noted in ROS Statement are negative. Constitutional: Denies: fever, chills Respiratory: Denies: cough, dyspnea Cardiovascular: Denies: chest pain, palpitations Gastrointestinal: Denies: abdominal pain, nausea, vomiting Musculoskeletal: Denies: back pain Neurological: Denies: headache, weakness Psychiatric: Reports: depression, suicidal thoughts. Denies: auditory hallucinations, visual hallucinations, homicidal thoughts Past Medical History Past Medical History: Seizure Disorder Additional Past Medical History / Comment(s): tricuspid valve problems, PSEUDOSEIZURES, History of Any Multi-Drug Resistant Organisms: None Reported Past Surgical History: Appendectomy, Orthopedic Surgery Additional Past Surgical History / Comment(s): testicular torsion correction, Past Psychological History: ADD/ADHD, Anxiety, Bipolar, Depression, Schizophrenia Smoking Status: Current every day smoker Past Alcohol Use History: Occasional Past Drug Use History: Marijuana, Methamphetamine General Exam Limitations: no limitations General appearance: alert, in no apparent distress Head exam: Present: atraumatic, normocephalic Eye exam: Present: normal appearance. Absent: scleral icterus, conjunctival injection ENT exam: Present: normal oropharynx Neck exam: Present: normal inspection Respiratory exam: Present: normal lung sounds bilaterally. Absent: respiratory distress, wheezes, rales, rhonchi, stridor Cardiovascular Exam: Present: regular rate, normal rhythm, normal heart sounds. Absent: systolic murmur, diastolic murmur, rubs, gallop GI/Abdominal exam: Present: soft. Absent: distended, tenderness, guarding, rebound Extremities exam: Present: normal inspection, normal capillary refill. Absent: pedal edema, calf tenderness Back exam: Present: normal inspection. Absent: CVA tenderness (R), CVA tenderness (L) Neurological exam: Present: alert Skin exam: Present: warm, dry, intact, normal color. Absent: rash Course Vital Signs 04/20/21 01:54 Temperature 98.4 F Pulse Rate 104 H Respiratory 20 Rate Blood Pressure 143/94 O2 Sat by Pulse 100 Oximetry Medical Decision Making - Lab Data Lab Results 04/20/21 Range/Units 02:21 Urine Opiates Screen Not Detected (NotDetected) Ur Oxycodone Screen Not Detected (NotDetected) Urine Methadone Screen Not Detected (NotDetected) Ur Propoxyphene Screen Not Detected (NotDetected) Ur Barbiturates Screen Not Detected (NotDetected) U Tricyclic Antidepress Not Detected (NotDetected) Ur Phencyclidine Scrn Not Detected (NotDetected) Ur Amphetamines Screen Detected H (NotDetected) U Methamphetamines Scrn Detected H (NotDetected) U Benzodiazepines Scrn Not Detected (NotDetected) Urine Cocaine Screen Not Detected (NotDetected) U Marijuana (THC) Screen Detected H (NotDetected) Disposition Clinical Impression: Mood disorder Disposition: HOME SELF-CARE Condition: Good Instructions (If sedation given, give patient instructions): Mood Disorders (ED) Is patient prescribed a controlled substance at d/c from ED?: No Referrals: Tim Trinidad MD [Primary Care Provider] - 1-2 days
[2021-04-20 04:41] VITALS: BP 131/86; PULSE 96; RESP 16; TEMP 98
== END 2021-04-20 04:59 | disposition home or self-care (01) ==
LOC: EC 01:50
DX: F39 Unspecified mood [affective] disorder (principal); F32.9 Major depressive disorder, single episode, unspecified; Z90.89 Acquired absence of other organs; F17.200 Nicotine dependence, unspecified, uncomplicated; F12.90 Cannabis use, unspecified, uncomplicated
CPT/HCPCS: 80306; 82075; 99285

== ENCOUNTER 2021-04-21 02:34 | Inpatient (IN) | payer MEDICAID, OTHER ==
--- NOTE | 2021-04-21 02:37 | ED ---
Overdose HPI - General Stated Complaint: Overdose, Mental health Time Seen by Provider: 04/21/21 02:36 Source: RN notes reviewed, old records reviewed Mode of arrival: EMS Limitations: altered mental status - History of Present Illness Initial Comments: This is a 25-year-old male DF for evaluation patient presents an overdose attempted overdose, attempted suicidal overdose. Patient is a poor story refuses to answer questions. He did try to kill himself by shooting up heroin and other possible medications on board MD Complaint: intentional overdose -: minutes(s) Intent: suicide attempt, want to go to sleep, want to escape How Overdose Was Discovered: family/friend present at time Context: Intentional Overdose: relationship problems, drug/ETOH problems Context: Accidental Overdose: wanted to get high Associated Symptoms: depression Treatments Prior to Arrival: none - Related Data Home Medications Medication Instructions Recorded Confirmed ARIPiprazole [Abilify Maintena] 400 mg IM Q28D 04/21/21 04/21/21 [place] Carbonate 600 mg PO HS 04/21/21 04/21/21 Mirtazapine [Remeron] 30 mg PO HS 04/21/21 04/21/21 Allergies Allergy/AdvReac Type Severity Reaction Status Date / Time alprazolam [From Xanax] AdvReac DOESN'T Verified 04/21/21 12:00 WANT morphine AdvReac DOESN'T Verified 04/21/21 12:00 WANT Review of Systems ROS Statement: Those systems with pertinent positive or pertinent negative responses have been documented in the HPI. ROS Other: All systems not noted in ROS Statement are negative. Past Medical History Past Medical History: Seizure Disorder Additional Past Medical History / Comment(s): tricuspid valve problems, PSEUDOSEIZURES, History of Any Multi-Drug Resistant Organisms: None Reported Past Surgical History: Appendectomy, Orthopedic Surgery Additional Past Surgical History / Comment(s): testicular torsion correction, Past Psychological History: ADD/ADHD, Anxiety, Bipolar, Depression, Schizophrenia Smoking Status: Current every day smoker Past Alcohol Use History: Occasional Past Drug Use History: Marijuana, Methamphetamine General Exam Limitations: altered mental status General appearance: alert, in no apparent distress, appears intoxicated, lethargic Head exam: Present: atraumatic, normocephalic, normal inspection Eye exam: Present: normal appearance, PERRL, EOMI. Absent: scleral icterus, conjunctival injection, periorbital swelling ENT exam: Present: normal exam, mucous membranes moist Neck exam: Present: normal inspection. Absent: tenderness, meningismus, lympha denopathy Respiratory exam: Present: normal lung sounds bilaterally. Absent: respiratory distress, wheezes, rales, rhonchi, stridor Cardiovascular Exam: Present: normal rhythm, tachycardia, normal heart sounds. Absent: systolic murmur, diastolic murmur, rubs, gallop, clicks GI/Abdominal exam: Present: soft, normal bowel sounds. Absent: distended, tenderness, guarding, rebound, rigid Extremities exam: Present: normal inspection, full ROM, normal capillary refill. Absent: tenderness, pedal edema, joint swelling, calf tenderness Back exam: Present: normal inspection Neurological exam: Present: alert, oriented X3, CN II-XII intact Psychiatric exam: Present: normal affect, normal mood Skin exam: Present: warm, dry, intact, normal color. Absent: rash Course Vital Signs 04/21/21 04/21/21 04/21/21 02:49 08:35 12:00 Temperature 98.4 F Pulse Rate 112 H 76 Respiratory 16 18 18 Rate Blood Pressure 139/93 132/84 O2 Sat by Pulse 98 99 95 Oximetry 04/21/21 04/21/21 12:05 12:23 Temperature Pulse Rate 78 Respiratory 14 22 Rate Blood Pressure 117/77 O2 Sat by Pulse 95 91 L Oximetry - Reevaluation(s) Reevaluation #1: Medical records reviewed Patient in no acute distress Patient informed of results and questions answered Reevaluation #2: Medical clear for psychiatric evaluation Medical Decision Making - Medical Decision Making 25 male to the ER ER with overdose and suicide attempt. Patient is to be admitted for psychiatric evaluation and treatment - Lab Data Result diagrams: 04/22/21 16:19 04/22/21 16:19 Lab Results 04/21/21 04/21/21 04/21/21 Range/Units 05:44 05:44 05:44 WBC 6.5 (3.8-10.6) k/uL RBC 5.36 (4.30-5.90) m/uL Hgb 15.7 (13.0-17.5) gm/dL Hct 45.9 (39.0-53.0) % MCV 85.7 (80.0-100.0) fL MCH 29.3 (25.0-35.0) pg MCHC 34.1 (31.0-37.0) g/dL RDW 13.4 (11.5-15.5) % Plt Count 313 (150-450) k/uL MPV 8.9 Sodium 141 (137-145) mmol/L Potassium 3.4 L (3.5-5.1) mmol/L Chloride 106 (98-107) mmol/L Carbon Dioxide 18 L (22-30) mmol/L Anion Gap 17 mmol/L BUN 11 (9-20) mg/dL Creatinine 1.51 H (0.66-1.25) mg/dL Est GFR (CKD-EPI)AfAm 74 (>60 ml/min/1.73 sqM) Est GFR (CKD-EPI)NonAf 64 (>60 ml/min/1.73 sqM) Glucose 171 H (74-99) mg/dL Calcium 9.6 (8.4-10.2) mg/dL Total Bilirubin 1.5 H (0.2-1.3) mg/dL AST 30 (17-59) U/L ALT 15 (4-49) U/L Alkaline Phosphatase 83 (38-126) U/L Total Protein 7.4 (6.3-8.2) g/dL Albumin 4.7 (3.5-5.0) g/dL Urine Opiates Screen (NotDetected) Ur Oxycodone Screen (NotDetected) Urine Methadone Screen (NotDetected) Ur Propoxyphene Screen (NotDetected) Ur Barbiturates Screen (NotDetected) U Tricyclic Antidepress (NotDetected) Ur Phencyclidine Scrn (NotDetected) Ur Amphetamines Screen (NotDetected) U Methamphetamines Scrn (NotDetected) U Benzodiazepines Scrn (NotDetected) Urine Cocaine Screen (NotDetected) U Marijuana (THC) Screen (NotDetected) Coronavirus (PCR) Not Detected (Not Detectd) 04/21/21 Range/Units 12:50 WBC (3.8-10.6) k/uL RBC (4.30-5.90) m/uL Hgb (13.0-17.5) gm/dL Hct (39.0-53.0) % MCV (80.0-100.0) fL MCH (25.0-35.0) pg MCHC (31.0-37.0) g/dL RDW (11.5-15.5) % Plt Count (150-450) k/uL MPV Sodium (137-145) mmol/L Potassium (3.5-5.1) mmol/L Chloride (98-107) mmol/L Carbon Dioxide (22-30) mmol/L Anion Gap mmol/L BUN (9-20) mg/dL Creatinine (0.66-1.25) mg/dL Est GFR (CKD-EPI)AfAm (>60 ml/min/1.73 sqM) Est GFR (CKD-EPI)NonAf (>60 ml/min/1.73 sqM) Glucose (74-99) mg/dL Calcium (8.4-10.2) mg/dL Total Bilirubin (0.2-1.3) mg/dL AST (17-59) U/L ALT (4-49) U/L Alkaline Phosphatase (38-126) U/L Total Protein (6.3-8.2) g/dL Albumin (3.5-5.0) g/dL Urine Opiates Screen Detected H (NotDetected) Ur Oxycodone Screen Not Detected (NotDetected) Urine Methadone Screen Not Detected (NotDetected) Ur Propoxyphene Screen Not Detected (NotDetected) Ur Barbiturates Screen Not Detected (NotDetected) U Tricyclic Antidepress Not Detected (NotDetected) Ur Phencyclidine Scrn Not Detected (NotDetected) Ur Amphetamines Screen Detected H (NotDetected) U Methamphetamines Scrn Detected H (NotDetected) U Benzodiazepines Scrn Not Detected (NotDetected) Urine Cocaine Screen Not Detected (NotDetected) U Marijuana (THC) Screen Detected H (NotDetected) Coronavirus (PCR) (Not Detectd) - EKG Data -: EKG Interpreted by Me (EKG is sinus rhythm 72 OH 178 QRS 114 QTc 470) Disposition Clinical Impression: Suicidal ideation, Attempted suicide, Methamphetamine use, Mood disorder, Marijuana use Disposition: TRANSFER TO PSYCH HOSP/UNIT Condition: Fair Is patient prescribed a controlled substance at d/c from ED?: No
[2021-04-21] MEDS ORDERED: SODIUM CHLORIDE 0.9% 1,000 ML IV STA (02:50)
[2021-04-21] MEDS ORDERED: ONDANSETRON 4 MG/2 ML VIAL IVP STA (02:50)
[2021-04-21 05:52] LABS: HCT 45.9 % (39.0-53.0); HGB 15.7 gm/dL (13.0-17.5); MCH 29.3 pg (25.0-35.0); MCHC 34.1 g/dL (31.0-37.0); MCV 85.7 fL (80.0-100.0); Mean Platelet Volume 8.9; Platelet Count 313 k/uL (150-450); RBC 5.36 m/uL (4.30-5.90); RDW 13.4 % (11.5-15.5); WBC 6.5 k/uL (3.8-10.6)
[2021-04-21 06:18] LABS: Albumin 4.7 g/dL (3.5-5.0); Calcium 9.6 mg/dL (8.4-10.2); Potassium 3.4 mmol/L (3.5-5.1); Total Bilirubin 1.5 mg/dL (0.2-1.3); Total Protein 7.4 g/dL (6.3-8.2)
[2021-04-21 13:23] LABS: Amphetamine Screen,Urine Detected (NotDetected); Barbiturate Screen,Urine Not Detected (NotDetected); Benzodiazepines Screen,Urine Not Detected (NotDetected); Cocaine Screen,Urine Not Detected (NotDetected); Methadone Screen, Urine Not Detected (NotDetected); Opiate Screen,Urine Detected (NotDetected); Oxycodone Screen, Urine Not Detected (NotDetected); Phencyclidine Screen,Urine Not Detected (NotDetected); Tricyclic Antidepressant,Urine Not Detected (NotDetected); Urn Cannabinoid Scrn Detected (NotDetected)
[2021-04-21] MEDS ORDERED: MAGNESIUM HYDROXIDE 2,400 MG/10 ML CUP PO PRN (14:07)
[2021-04-21] MEDS ORDERED: MAG HYDROX/AL HYDROX/SIMETH 30 ML CUP PO PRN (14:07)
[2021-04-21] MEDS ORDERED: LORazepam 1 MG TAB PO PRN (14:07)
[2021-04-21] MEDS ORDERED: ACETAMINOPHEN TAB 325 MG TAB PO PRN (14:07)
[2021-04-21] MEDS ORDERED: HALOPERIDOL LACTATE 5 MG/ML 1 ML VIAL IM PRN (14:14)
[2021-04-21] MEDS ORDERED: haloperidoL 5 MG TAB PO PRN (14:14)
[2021-04-21] MEDS ORDERED: traZODone HCL 50 MG TAB PO PRN (14:14)
[2021-04-21] MEDS ORDERED: LORazepam 2 MG/ML INJ IM PRN (14:14)
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
[2021-04-22 14:13] LABS: Chol/HDL Ratio 6.81; LDL Cholesterol,Calculated 137.6 mg/dL (0.0-131.0); VLDL Calculation 19.4 mg/dL (5.00-40.00)
[2021-04-22 15:11] LABS: Hemoglobin A1C 5.5 % (4.0-6.0)
[2021-04-22] MEDS ORDERED: Potassium Replacement Protocol 1 EACH MISC MISCELLANE PRN (15:47)
--- NOTE | 2021-04-22 16:10 | P.CONS ---
History of Present Illness - Reason for Consult Consult date: 04/22/21 Medical management Requesting physician: Yordy Sanchez - Chief Complaint Overdose - History of Present Illness This is a 25-year-old gentleman with past medical history positive cigarette no seizures, ADD, ADHD, anxiety, bipolar, depression, schizophrenia, ongoing nicotine dependence, marijuana ,methamphetamine and heroin abuse presented to the ER with overdose of heroin IV. Reported he had never used heroin before and "used for the first time on April 21 at 0100 with 130 mL", which conflicts with his medical history of substance abuse. Vague historian. ER reports depression- patient reported intentional overdose. Currently not disclosing any further information. Drug screen positive for amphetamines, methamphetamines, opiates and cannabis. Ambulatory, tolerating exertion well. Denies chest pain, palpitations or shortness of breath. Denies lightheadedness, dizziness or focal deficits. Afebrile, vital signs stable, maintaining O2 sats in the 90s on room air. With questioning, patient itching all over, which stopped upon walking out of the exam room, possible withdrawal. Potassium 3.4, BUN 11, creatinine 1.51, T bili 1.5; repeat labs ordered. Review of Systems ROS Statement: Those systems with pertinent positive or pertinent negative responses have been documented in the HPI. ROS Other: All systems not noted in ROS Statement are negative. Past Medical History Past Medical History: Seizure Disorder Additional Past Medical History / Comment(s): tricuspid valve problems, PSEUDOSEIZURES, History of Any Multi-Drug Resistant Organisms: None Reported Past Surgical History: Appendectomy, Orthopedic Surgery Additional Past Surgical History / Comment(s): testicular torsion correction, Smoking Status: Current every day smoker Medications and Allergies Home Medications Medication Instructions Recorded Confirmed Type ARIPiprazole [Abilify Maintena] 400 mg IM Q28D 04/21/21 04/21/21 History [place] Carbonate 600 mg PO HS 04/21/21 04/21/21 History Mirtazapine [Remeron] 30 mg PO HS 04/21/21 04/21/21 History Allergies Allergy/AdvReac Type Severity Reaction Status Date / Time alprazolam [From Xanax] AdvReac DOESN'T Verified 04/21/21 12:00 WANT morphine AdvReac DOESN'T Verified 04/21/21 12:00 WANT Physical Exam Vitals: Vital Signs Temp Pulse Resp BP Pulse Ox 04/22/21 09:36 71 16 121/71 04/21/21 16:02 97.5 F L 53 L 12 119/56 96 PHYSICAL EXAM: VITAL SIGNS: As above GENERAL: Ambulatory, alert and oriented 3, no acute distress. HEENT: Conjunctivae normal. eyes normal. NECK: No JVD. No thyroid enlargement. No LNs CARDIOVASCULAR: S1, S2 regular.. No murmur RESPIRATION: Breath sounds diminished in the bases. No rhonchi or crackles. No bronchial breathing. ABDOMEN: Soft, nontender . No guarding. no masses palpable. No ascites, No hepatosplenomegaly.Bowel sounds heard. LEGS: No edema. no swelling PSYCHIATRY: Alert and oriented X3, mood and affect flat affect, vague. NERVOUS SYSTEM: Cranial N 2-12 grossly normal. Moves all 4 limbs. No focal deficits. Strength and sensation grossly intact.. Skin: Warm and dry, no rash. Lymphatic system. No LN neck axilla. Results CBC & Chem 7: 04/21/21 05:44 04/21/21 05:44 Labs: Abnormal Lab Results - Last 24 Hours (Table) 04/22/21 Range/Units 06:15 LDL Cholesterol, Calc 137.6 H (0.0-131.0) mg/dL HDL Cholesterol 27.0 L (40.0-60.0) mg/dL TSH 0.403 L (0.465-4.680) mIU/L Assessment and Plan Assessment: Heroin overdose, reported as intentional suicide attempt. Polysubstance abuse, including methamphetamines, cannabis, heroin Possible withdrawal Renal failure, possibly acute Mildly elevated T bili Hypokalemia Pseudoseizures Seizure disorder ADD,ADHD Anxiety Bipolar Depression Schizophrenia Plan: Continue current medication regime ,monitoring and symptomatic treatment. Repeat labs ordered, with close monitoring of electrolytes, renal function and T bili/LFTs. Maintain CIWA protocol Potassium replacement protocol ordered. Pepcid for GI prophylaxis.Thank you for the consult. The impression and plan of care has been dictated as directed. : I performed a history and examination of this patient, discussed the same with the dictator. I agree with the dictator's note ,documented as a scribe. Any additional findings or plans will be noted.
[2021-04-22 16:48] LABS: HCT 44.9 % (39.0-53.0); HGB 14.5 gm/dL (13.0-17.5); MCH 28.5 pg (25.0-35.0); MCHC 32.3 g/dL (31.0-37.0); MCV 88.3 fL (80.0-100.0); Mean Platelet Volume 7.8; Platelet Count 233 k/uL (150-450); RBC 5.09 m/uL (4.30-5.90); RDW 13.6 % (11.5-15.5); WBC 6.2 k/uL (3.8-10.6)
[2021-04-22 17:00] LABS: ALT 26 U/L (4-49); AST 85 U/L (17-59); African American GFR (CKD) >90 (>60 ml/min/1.73 sqM); Albumin 4.5 g/dL (3.5-5.0); Alkaline Phosphatase 80 U/L (38-126); Anion Gap 7 mmol/L; Blood Urea Nitrogen 10 mg/dL (9-20); Calcium 9.7 mg/dL (8.4-10.2); Carbon Dioxide 31 mmol/L (22-30); Chloride 100 mmol/L (98-107); Glucose 103 mg/dL (74-99); Non-African American GFR(CKD) 83 (>60 ml/min/1.73 sqM); Potassium 4.6 mmol/L (3.5-5.1); Sodium 138 mmol/L (137-145); Total Protein 7.1 g/dL (6.3-8.2)
[2021-04-22] MEDS: FAMOTIDINE 20 MG TAB PO SCH (21:10)
[2021-04-22] MEDS: QUEtiapine 50 MG TAB PO SCH (21:10)
[2021-04-23 07:07] VITALS: RESP 18
--- NOTE | 2021-04-23 08:53 | P.PN ---
Progress Note - Text Progress Note Date: 04/23/21 S&O: Patient was seen for a routine follow-up examination. He said he had slept very well last night and is quite happy. He said he feels better and is eager to go home and see his son. He was visited by his yesterday and apparently she is concerned that he will get back on his drugs of abuse over the weekend since his rehab is not until Tuesday the . When I explained this information with him he became upset and started to say that his is trying to manipulate him control him and is tired of her behavior. He was counseled that may be she means well but she has a different way of expressing her thoughts to him. Eventually he settled down and agreed to stay until Tuesday for his discharge. Otherwise he does not have any complaint or concerns. He took Seroquel 50 mg last night and slept very good. Denies any adverse effects from it. This is an ambulatory cooperative male with good hygiene. He was initially upset when I told about his discharge plan but settled down later on. His speech is spontaneous relevant and goal-directed. His mood is fairly euthymic and affect is appropriate. He denies suicide and homicide thoughts. He is eager to go home and see his [id number] son. He is also eager to go through the rehab. He denies hallucinations and delusional thinking. However he does not appear to agree with his 's plans. He is well oriented with good memory and concentration and fund of knowledge. 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 Personality disorder unspecified. Patient is improving Plan: Continue Seroquel 50 mg at bedtime, therapy and discharge on Tuesday so that he can go rehab on Tuesday.
[2021-04-23] MEDS: FAMOTIDINE 20 MG TAB PO SCH ×2 (09:29→20:07)
[2021-04-23] MEDS: QUEtiapine 50 MG TAB PO SCH (20:07)
[2021-04-24] MEDS: FAMOTIDINE 20 MG TAB PO SCH ×2 (09:34→21:05)
--- NOTE | 2021-04-24 11:39 | P.PN ---
Progress Note - Text Progress Note Date: 04/24/21 S&O: Patient was seen for a routine follow-up examination in the office. He asked if he could be discharged today so that he can be with his family friends and son. He thinks 14 days of rehab stays not long enough for him to get any benefit of it. He also feels he won't have enough time to spend with his son and family if he is discharged on Tuesday and go for rehab on Tuesday. This matter was discussed with the treatment team. Apparently patient did not sign all his admission paperwork and social science professor has not been able to get more information from family. In addition his overdose on opioids was quite severe and the team is concerned about his safety since he won't be going to rehab until Tuesday. This matter was discussed with the patient and he agreed to stay here until Tuesday & his admission paperworks. Otherwise he does not have any complaints. He said he still slept very well last night. He socializes selectively mute some patients and does not have any behavioral issues. Denies any adverse effects from Seroquel. This is an ambulatory male of . He is polite and friendly and cooperative. He was able to take our recommendations without showing any frustration or anger. He does not have any psychomotor agitation or retardation. His speech is spontaneous relevant and goal-directed. His mood is euthymic and affect is appropriate. He denies hallucinations delusional thinking suicidal and homicidal thoughts. He is well oriented with good memory concentration general fund of knowledge. Assessment: Adjustment disorder with mixed disturbance in emotions and conduct Cannabis use disorder severe Stimulant use disorder severe Opioid use disorder mild to moderate Personality disorder unspecified. Patient is improving and is willing to listen to the recommendation. Plan: Continue Seroquel 50 mg at bedtime, therapy and discharge on Tuesday if no behavior issues hinder the discharge.
[2021-04-24] MEDS: QUEtiapine 50 MG TAB PO SCH (21:06)
[2021-04-25] MEDS: FAMOTIDINE 20 MG TAB PO SCH ×2 (08:08→19:48)
--- NOTE | 2021-04-25 13:59 | P.PN ---
Progress Note - Text Progress Note Date: 04/25/21 Interval History: Patient was seen in his room and was directable and agreeable to speak with assembly instructions writer. This is a 25-year-old male DF for evaluation patient presents an overdose attempted overdose, attempted suicidal overdose. Patient is a poor story refuses to answer questions. He did try to kill himself by shooting up heroin and other possible medications on board. Patient denies any side effects from the medications and has been compliant with meds. Mental Status Exam: General Appearance: Patient appears to be stated age is alert, directable, and cooperative. Behavior: Patient is calmly seated without any agitated behavior. Speech: Patient's speech is fluent and nonpressured. Mood/Affect: Mood is improving mildly, affect is congruent and constricted. Suicidality/Homicidality: Patient denies having any suicidal or homicidal ideation intent or plan. Perceptions: Patient denies any visual hallucinations and denies any auditory hallucinations Though content/process: There is no evidence of any delusional thought content and thought process is linear and goal-directed. Memory and concentration: AOX3, grossly intact for the purposes of this session Judgment and insight: Improving mildly Assessment Adjustment disorder with mixed disturbance in emotions and conduct Cannabis use disorder severe Stimulant use disorder severe Opioid use disorder mild to moderate. Personality disorder unspecified. Plan: -Patient continues to meet criteria for inpatient psychiatric admission for symptom stabilization and safety. -Medications: Continue medication as before -When necessary Ativan and Haldol for agitation/aggression. -SW on board for discharge planning. Encouraged the patient to participate in milieu.
[2021-04-25] MEDS: QUEtiapine 50 MG TAB PO SCH (19:49)
[2021-04-26] MEDS: FAMOTIDINE 20 MG TAB PO SCH ×2 (08:42→20:35)
--- NOTE | 2021-04-26 10:06 | P.PN ---
Progress Note - Text Progress Note Date: 04/26/21 Interval History: Patient was seen in the room and was directable and agreeable to speak with poem writer . He said he has been for 9 months and has been living with his for more than 9 months. She was before they got and have a child together. Apparently they have not been getting along well, we are getting into arguments and fighting.He said he has been smoking methamphetamine since June 2020 on binges and started to shoot it about a week ago. . At this time patient denies any suicidal or homical ideations, intent or plan. Patient denies any auditory, visual hallucinations and denies any paranoia or de lusions. Patient denies any side effects from the medications and has been compliant with meds. Mental Status Exam: General Appearance: Patient appears to be stated age is alert, directable, and cooperative. Behavior: Patient is calmly seated without any agitated behavior. Speech: Patient's speech is fluent and nonpressured. Mood/Affect: Mood is improving mildly, affect is congruent and constricted. Suicidality/Homicidality: Patient denies having any suicidal or homicidal ideation intent or plan. Perceptions: Patient denies any visual hallucinations and denies any auditory hallucinations Though content/process: There is no evidence of any delusional thought content and thought process is linear and goal-directed. Memory and concentration: AOX3, grossly intact for the purposes of this session Judgment and insight: Improving mildly Assessment Adjustment disorder with mixed disturbance in emotions and conduct Cannabis use disorder severe Stimulant use disorder severe Opioid use disorder mild to moderate. Personality disorder unspecified. Plan: -Patient continues to meet criteria for inpatient psychiatric admission for symptom stabilization and safety. . -Medications: Continue medication as before -When necessary Ativan and Haldol for agitation/aggression. -SW on board for discharge planning. Encouraged the patient to participate in milieu.
[2021-04-26] MEDS: QUEtiapine 50 MG TAB PO SCH (20:35)
[2021-04-27 06:52] VITALS: BP 126/66; PULSE 69; TEMP 97.3
[2021-04-27] MEDS: FAMOTIDINE 20 MG TAB PO SCH (08:42)
--- NOTE | 2021-04-27 09:44 | P.DS ---
Providers Date of admission: 04/21/21 13:52 Expected date of discharge: 04/27/21 Attending physician: Yordy Sanchez MD Consults: 04/21/21 14:12 Consult Physician Routine Consulting Provider: Tim Trinidad Consult Reason/Comments: H&P and medical Do you want consulting provider notified?: Yes Primary care physician: Tim Trinidad - Discharge Diagnosis(es) (1) Unipolar affective disorder, depressive Current Visit: Yes Status: Acute Priority: High (2) Cannabis use disorder, mild, abuse Current Visit: Yes Status: Acute Priority: Medium (3) Stimulant use disorder Current Visit: Yes Status: Acute Priority: Medium (4) Opioid use disorder, moderate, dependence Current Visit: Yes Status: Acute Priority: High (5) Personality disorder Current Visit: Yes Status: Acute Priority: Low Hospital Course: Admission HPI: Admission note was completed by Dr. Chisholm "Babar Grimm is a a 25 years old male undisclosed race living in [facility]. admitted to [facility] on 04/21/2021 since he had overdosed on heroin IV. Patient does not appear to be a good historian. When he was asked what the reasons for coming to hospital he said "about 2 months... I have been feeling down". He said he has been for 9 months and has been living with his for more than 9 months. She was before they got and have a child together. Apparently they have not been getting along well, we are getting into arguments and fighting. He said he could not handle it anymore and he decided to leave the house about 2 months ago and was living on his own. He said he has been smoking methamphetamine since June 2020 on binges and started to shoot it about a week ago. He has not been able to sleep well but denies being paranoid or hearing voices. Apparently his has been sending him several text messages and was "bugging him" which he could not handle it anymore. So he decided to kill himself by shooting 130 mL of heroin in his car. For reasons not clear his 's ex-boyfriend came to see him and he refused to open the door. He said he does not remember what happened after that. Apparently he was taken to the ER and then was admitted to the unit for psychiatric management. He said he came to the ER about 3:00 in the morning and has not been sleeping well feels tired and is not able to provide good information. However he did state that he has been smoking pot since he was a teenager and was smoking 3-5 blunts a day. His drug screening is positive for methamphetamines and opiates and cannabis." Hospital course: Upon admission to the unit patient was initially depressed after a suicide attempt. Patient was however directable and agreeable to commence treatment and signed adult voluntary form. Patient got along well with other patients on the unit and followed unit protocol. Patient was compliant with the medications and denied any side effects throughout hospital course. Patient was started on Seroquel 50 mg daily at bedtime for mood stabilization/depression/insomnia. Patient spoke of his stressors and engaged in therapy both group and individual. Patient was also seen by medical team for history and physical exam. Throughout the course of the hospitalization patient gradually improved with regards to mood, anxiety, sleep and became more future oriented with improved insight and judgment. On the day of discharge patient denied any suicidal or homicidal ideations intent or plan denied any auditory or visual hallucinations. Patient endorsed wanting to live for his health, sobriety and family. The patient denied any access to guns or weapons. Patient denied any paranoia and did not endorse any delusions. Patient does have a significant history of substance abuse and was counseled on abstaining from all substances including alcohol and marijuana. Patient was offered substance rehab and accepted and has a scheduled intake date at [facility] for rehab. Rubber Mold Maker spoke with patient's over the phone who claims that she would like patient discharged today and will be able to watch over him and drive him to his intake appointment tomorrow as she wants to see and spend time with his kids today before going into rehab. Patient was also counseled on the medications and need for regular compliance and was encouraged to follow-up with their outpatient appointment for mental health and also for primary care. Prior to discharge a family meeting will be arranged by group social worker to answer any questions and ensure safety upon discharge. Mental status exam: General Appearance: Patient appears to be stated age is alert, pleasant, and cooperative. Patient is in no acute distress and has improved hygiene and grooming Behavior: Patient is calmly seated without any agitated behavior. Speech: Patient's speech is fluent and nonpressured. Mood/Affect: Patient reports their mood is "better", affect is congruent and euthymic. Suicidality/Homicidality: Patient denies having any suicidal or homicidal ideation intent or plan. Perceptions: Patient denies any auditory or visual hallucinations. Though content/process: There is no evidence of any delusional thought content and thought process is linear and goal-directed. more future oriented Memory and concentration: AOX3, grossly intact for the purposes of this session. Can spell "WORLD" backwards correctly. Judgment and insight: [chronically poor, however has] improved with guarded prognosis Impression: Depressive disorder unspecified Cannabis use disorder Stimulant use disorder Opioid use disorder moderate Nicotine dependence Personality disorder unspecified Plan: -Continue with discharge today as patient has improved and stabilized psychiatrically and is not currently an imminent threat to [himself] and/or others. [Patient will remain at chronically elevated risk for harm to self and/or others due to his polysubstance abuse.] -Continue medications: Seroquel 50 mg daily at bedtime for mood stabilization/depression/insomnia. -Patient was counseled on the need for medication compliance and appropriate follow-up at mental health and also primary care for medical issues. Patient verbalized understanding and agreed. -Social work to [arrange for and conduct family meeting to ensure safety upon discharge and answer any questions/concerns.] Social work also to arrange for patients follow up appointments for psychiatric care along with follow up with primary care provider. -Patient counseled on abstaining from recreational drugs and marijuana and alcohol. Was informed/educated on the adverse effects on their physical and mental health. [Patient verbally agreed and understood]. Patient has a intake date for substance rehab on 04/28 and his will be able to watch over him and drive him to his appointment tomorrow. -Patient was instructed to return to the hospital or seek immediate medical care if their psychiatric or medical symptoms do worsen or reoccur. Allergies Allergy/AdvReac Type Severity Reaction Status Date / Time alprazolam [From Xanax] AdvReac DOESN'T Verified 04/24/21 14:08 WANT morphine AdvReac DOESN'T Verified 04/24/21 14:08 WANT Laboratory Results WBC 6.2 k/uL (3.8-10.6) 04/22/21 16:19 RBC 5.09 m/uL (4.30-5.90) 04/22/21 16:19 Hgb 14.5 gm/dL (13.0-17.5) 04/22/21 16:19 Hct 44.9 % (39.0-53.0) 04/22/21 16:19 MCV 88.3 fL (80.0-100.0) 04/22/21 16:19 MCH 28.5 pg (25.0-35.0) 04/22/21 16:19 MCHC 32.3 g/dL (31.0-37.0) 04/22/21 16:19 RDW 13.6 % (11.5-15.5) 04/22/21 16:19 Plt Count 233 k/uL (150-450) 04/22/21 16:19 MPV 7.8 04/22/21 16:19 Sodium 138 mmol/L (137-145) 04/22/21 16:19 Potassium 4.6 mmol/L (3.5-5.1) 04/22/21 16:19 Chloride 100 mmol/L (98-107) 04/22/21 16:19 Carbon Dioxide 31 mmol/L (22-30) H 04/22/21 16:19 Anion Gap 7 mmol/L 04/22/21 16:19 BUN 10 mg/dL (9-20) 04/22/21 16:19 Creatinine 1.21 mg/dL (0.66-1.25) 04/22/21 16:19 Est GFR (CKD-EPI)AfAm >90 (>60 ml/min/1.73 sqM) 04/22/21 16:19 Est GFR (CKD-EPI)NonAf 83 (>60 ml/min/1.73 sqM) 04/22/21 16:19 Glucose 103 mg/dL (74-99) H 04/22/21 16:[address] Glu mg/dL 111 04/22/21 06:15 Hemoglobin A1c 5.5 % (4.0-6.0) 04/22/21 06:15 Calcium 9.7 mg/dL (8.4-10.2) 04/22/21 16:19 Total Bilirubin 1.0 mg/dL (0.2-1.3) 04/22/21 16:19 AST 85 U/L (17-59) H 04/22/21 16:19 ALT 26 U/L (4-49) 04/22/21 16:19 Alkaline Phosphatase 80 U/L (38-126) 04/22/21 16:19 Total Protein 7.1 g/dL (6.3-8.2) 04/22/21 16:19 Albumin 4.5 g/dL (3.5-5.0) 04/22/21 16:19 Triglycerides 97.0 mg/dL (0.0-149.0) 04/22/21 06:15 Cholesterol 184 mg/dL (0-200) 04/22/21 06:15 LDL Cholesterol, Calc 137.6 mg/dL (0.0-131.0) H 04/22/21 06:15 VLDL Cholesterol, Calc 19.40 mg/dL (5.00-40.00) 04/22/21 06:15 HDL Cholesterol 27.0 mg/dL (40.0-60.0) L 04/22/21 06:15 Cholesterol/HDL Ratio 6.81 04/22/21 06:15 TSH 0.403 mIU/L (0.465-4.680) L 04/22/21 06:15 Urine Opiates Screen Detected (NotDetected) H 04/21/21 12:50 Ur Oxycodone Screen Not Detected (NotDetected) 04/21/21 12:50 Urine Methadone Screen Not Detected (NotDetected) 04/21/21 12:50 Ur Propoxyphene Screen Not Detected (NotDetected) 04/21/21 12:50 Ur Barbiturates Screen Not Detected (NotDetected) 04/21/21 12:50 U Tricyclic Antidepress Not Detected (NotDetected) 04/21/21 12:50 Ur Phencyclidine Scrn Not Detected (NotDetected) 04/21/21 12:50 Ur Amphetamines Screen Detected (NotDetected) H 04/21/21 12:50 U Methamphetamines Scrn Detected (NotDetected) H 04/21/21 12:50 U Benzodiazepines Scrn Not Detected (NotDetected) 04/21/21 12:50 Urine Cocaine Screen Not Detected (NotDetected) 04/21/21 12:50 U Marijuana (THC) Screen Detected (NotDetected) H 04/21/21 12:50 Coronavirus (PCR) Not Detected (Not Detectd) 04/21/21 05:44 Vital Signs Temp 97.3 F L 04/27/21 06:23 Pulse 69 04/27/21 06:23 Resp 18 04/27/21 06:23 BP 126/66 04/27/21 06:23 Pulse Ox 96 04/21/21 16:02 Intake & Output 04/26/21 04/27/21 04/27/21 18:59 06:59 18:59 Weight 100.7 kg Patient Condition at Discharge: Stable Plan - Discharge Summary Discharge Rx Participant: No New Discharge Prescriptions: New Famotidine [Pepcid] 20 mg PO BID 30 Days tab Nicotine Polacrilex [Nicorette] 2 mg BUCCAL Q4H PRN 28 Days gum PRN Reason: smoking cessation QUEtiapine [SEROquel] 50 mg PO HS 30 Days tab Acetaminophen Tab [Tylenol] 650 mg PO Q4HR PRN tab PRN Reason: Mild Pain/Discomfort Discontinued Bala Carbonate 600 mg PO HS Mirtazapine [Remeron] 30 mg PO HS ARIPiprazole [Abilify Maintena] 400 mg IM Q28D Discharge Medication List Acetaminophen Tab [Tylenol] 650 mg PO Q4HR PRN tab 04/27/21 [Rx] Famotidine [Pepcid] 20 mg PO BID 30 Days tab 04/27/21 [Rx] Nicotine Polacrilex [Nicorette] 2 mg BUCCAL Q4H PRN 28 Days gum 04/27/21 [Rx] QUEtiapine [SEROquel] 50 mg PO HS 30 Days tab 04/27/21 [Rx] Follow up Appointment(s)/Referral(s): madhu leung [Other] - 04/28/21 11:00 am Tim Trinidad MD [Primary Care Provider] - 1-2 days Activity/Diet/Wound Care/Special Instructions: Activity and diet as tolerated. Avoid the use of street drugs and alcohol. Take all medications as prescribed. When you are in need of refills on your medications please contact your medical provider and/or outpatient psychiatrist to have this done. Please go to scheduled outpatient appointment for aftercare treatment. If symptoms return or become worse, call the crisis line at and/or go to the nearest emergency room for evaluation. Discharge Disposition: HOME SELF-CARE
== END 2021-04-27 12:42 | disposition home or self-care (01) | DRG 918 ==
LOC: EC 02:34 → 3MHU 13:52
PROVIDERS: ADMIT Psychiatry & Neurology Psychiatry; ATTEND Psychiatry & Neurology Psychiatry
DX: T40.1X2A Poisoning by heroin, intentional self-harm, initial encounter (principal); F11.20 Opioid dependence, uncomplicated; F15.20 Other stimulant dependence, uncomplicated; N17.9 Acute kidney failure, unspecified; Z20.822 Contact with and (suspected) exposure to COVID-19; E87.6 Hypokalemia; F90.9 Attention-deficit hyperactivity disorder, unspecified type; F44.5 Conversion disorder with seizures or convulsions; F12.20 Cannabis dependence, uncomplicated; F17.200 Nicotine dependence, unspecified, uncomplicated; F31.9 Bipolar disorder, unspecified; F43.22 Adjustment disorder with anxiety; F60.9 Personality disorder, unspecified; F20.9 Schizophrenia, unspecified; F94.0 Selective mutism; G47.00 Insomnia, unspecified; Z65.3 Problems related to other legal circumstances; Z79.899 Other long term (current) drug therapy; Z88.5 Allergy status to narcotic agent; Z88.8 Allergy status to other drugs, medicaments and biological substances
CPT/HCPCS: 36415; 80053; 80061; 80306; 82075; 83036; 84443; 85027; 87635; 96361; 96374; 99285

== ENCOUNTER 2022-07-20 13:03 | Emergency (ER) | payer OTHER ==
[2022-07-20 13:13] VITALS: RESP 16; TEMP 98.2
[2022-07-20] MEDS ORDERED: ORPHENADRINE 30 MG/ML 2 ML VIAL IVP STA (13:29)
[2022-07-20] MEDS ORDERED: KETOROLAC 15 MG/ML 1 ML VIAL IVP STA (13:29)
[2022-07-20] MEDS ORDERED: SODIUM CHLORIDE 0.9% 1,000 ML IV ONE (13:29)
--- NOTE | 2022-07-20 13:51 | ED ---
Headache HPI - General Chief Complaint: Headache Stated Complaint: migraine Time Seen by Provider: 07/20/22 13:16 Source: patient, RN notes reviewed Mode of arrival: ambulatory Limitations: no limitations - History of Present Illness Initial Comments: 26-year-old male presents emergency Department with chief complaint of headache 2 weeks. Patient states is a mild headache but has intensified her last 2 weeks. Patient states the light and posterior head. He does have a constant ache with it. He states he's never exhibited) in the past. He does have photophobia, nausea and vomiting associated with. Patient denies any trauma no fever no neck pain or neck stiffness no extremity weakness or paresthesias. - Related Data Previous Rx's Medication Instructions Recorded Butalb/APAP/Caff 50-325-40Mg 1 tab PO Q4H PRN #10 tablet 07/20/22 [Fioricet 50-325-40] Allergies Allergy/AdvReac Type Severity Reaction Status Date / Time alprazolam [From Xanax] AdvReac DOESN'T Verified 07/20/22 13:13 WANT Review of Systems ROS Statement: Those systems with pertinent positive or pertinent negative responses have been documented in the HPI. ROS Other: All systems not noted in ROS Statement are negative. Past Medical History Past Medical History: Seizure Disorder Additional Past Medical History / Comment(s): tricuspid valve problems, PSEUDOSEIZURES, History of Any Multi-Drug Resistant Organisms: None Reported Past Surgical History: Appendectomy, Orthopedic Surgery Additional Past Surgical History / Comment(s): testicular torsion correction, Past Psychological History: ADD/ADHD, Anxiety, Bipolar, Depression, Schizophrenia Smoking Status: Current every day smoker Past Alcohol Use History: Occasional Past Drug Use History: Marijuana, Methamphetamine General Exam Limitations: no limitations General appearance: alert, in no apparent distress Head exam: Present: atraumatic, normocephalic, normal inspection Eye exam: Present: normal appearance, PERRL, EOMI. Absent: scleral icterus, conjunctival injection, periorbital swelling ENT exam: Present: normal exam, normal oropharynx, mucous membranes moist Neck exam: Present: normal inspection, full ROM. Absent: tenderness, meningismu s, lymphadenopathy Respiratory exam: Present: normal lung sounds bilaterally. Absent: respiratory distress, wheezes, rales, rhonchi, stridor Cardiovascular Exam: Present: regular rate, normal rhythm, normal heart sounds. Absent: systolic murmur, diastolic murmur, rubs, gallop, clicks GI/Abdominal exam: Present: soft, normal bowel sounds. Absent: distended, tenderness, guarding, rebound, rigid Neurological exam: Present: alert, oriented X3, CN II-XII intact, reflexes normal. Absent: motor sensory deficit Skin exam: Present: warm, dry, intact, normal color. Absent: rash Course Vital Signs 07/20/22 13:11 Temperature 98.2 F Pulse Rate 92 Respiratory 16 Rate Blood Pressure 127/84 O2 Sat by Pulse 100 Oximetry Medical Decision Making - Medical Decision Making 26-year-old presented for headache. Patient did have CT has had [address] does not show any acute findings. Patient does have some symptoms of a occipital neuralgia. Patient does state the headaches. This time. Patient will follow neurology was discussed. Disposition Clinical Impression: Headache Disposition: HOME SELF-CARE Condition: Stable Instructions (If sedation given, give patient instructions): Acute Headache (ED) Additional Instructions: Please return to the Emergency Department if symptoms worsen or any other concerns. Prescriptions: Butalb/APAP/Caff 50-325-40Mg [Fioricet 50-325-40] 1 tab PO Q4H PRN #10 tablet PRN Reason: Headache Is patient prescribed a controlled substance at d/c from ED?: Yes When asked, does pt state using other controlled substances?: No If prescribed controlled substance>3 days was MAPS reviewed?: Prescribed <3 Days Referrals: Amie Pritchard MD [Primary Care Provider] - 1-2 days Faby Richardson MD [REFERRING] - 1-2 days Time of Disposition: 14:55
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
[2022-07-20 15:03] VITALS: BP 122/87; PULSE 90
== END 2022-07-20 15:03 | disposition home or self-care (01) ==
LOC: EC 13:03
DX: R51.9 Headache, unspecified (principal); F41.9 Anxiety disorder, unspecified; F31.9 Bipolar disorder, unspecified; F17.200 Nicotine dependence, unspecified, uncomplicated; F12.90 Cannabis use, unspecified, uncomplicated; Z88.2 Allergy status to sulfonamides; Z79.899 Other long term (current) drug therapy
CPT/HCPCS: 70450; 99284; 96374; 96375 ×2; 96361; J2360; J1885; J1790

== ENCOUNTER 2022-09-11 14:38 | Emergency (ER) | payer OTHER ==
[2022-09-11 15:58] VITALS: TEMP 98.7
[2022-09-11 16:47] LABS: Appearance,Urine Clear (Clear); Bilirubin,Urine Negative (Negative); Blood,Urine Trace (Negative); Color,Urine Yellow; Glucose,Urine (UA) Negative (Negative); Ketones,Urine Negative (Negative); Leukocyte Esterase,Urine Negative (Negative); Mucus,Urine Occasional /hpf; Nitrite,Urine Negative (Negative); PH, Urine 5.5 (5.0-8.0); Protein,Urine Negative (Negative); RBC,Urine <1 /hpf (0-5); Specific Gravity,Urine 1.018 (1.001-1.035); Squamous Epithelial Cell,Urine <1 /hpf (0-4); Urobilinogen,Urine <2.0 mg/dL (<2.0); WBC,Urine 2 /hpf (0-5)
[2022-09-11] MEDS ORDERED: SODIUM CHLORIDE 0.9% 1,000 ML IV STA (17:28)
[2022-09-11] MEDS ORDERED: ORPHENADRINE 30 MG/ML 2 ML VIAL IVP STA (17:31)
[2022-09-11] MEDS ORDERED: ACETAMINOPHEN IV (For NPO) 1,000 MG in SALINE 100 100ML.BAG IVPB STA (17:31)
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
[2022-09-11 17:49] LABS: Basophils # (A) 0.1 k/uL (0-0.2); Basophils % (A) 1 %; Eosinophils # (A) 0.2 k/uL (0-0.7); Eosinophils % (A) 2 %; HCT 44.5 % (39.0-53.0); Lymphocytes # (A) 1.7 k/uL (1.0-4.8); Lymphocytes % (A) 17 %; MCH 29.6 pg (25.0-35.0); MCHC 33.7 g/dL (31.0-37.0); MCV 87.9 fL (80.0-100.0); Monocytes # (A) 0.6 k/uL (0-1.0); Monocytes % (A) 6 %; Neutrophils # (A) 7.3 k/uL (1.3-7.7); Neutrophils % (A) 73 %; Platelet Count 304 k/uL (150-450); RBC 5.06 m/uL (4.30-5.90); RDW 12.5 % (11.5-15.5); WBC 10.1 k/uL (3.8-10.6)
[2022-09-11 17:54] LABS: INR 1.1 (<1.2); Prothrombin Time 11.4 sec (9.0-12.0)
[2022-09-11 18:00] LABS: ALT 19 U/L (4-49); AST 29 U/L (17-59); African American GFR (CKD) >90 (>60 ml/min/1.73 sqM); Albumin 4.8 g/dL (3.5-5.0); Alcohol <10 mg/dL; Alkaline Phosphatase 72 U/L (38-126); Anion Gap 10 mmol/L; Blood Urea Nitrogen 12 mg/dL (9-20); Calcium 9.4 mg/dL (8.4-10.2); Carbon Dioxide 25 mmol/L (22-30); Chloride 102 mmol/L (98-107); Glucose 78 mg/dL (74-99); Non-African American GFR(CKD) 86 (>60 ml/min/1.73 sqM); Potassium 3.5 mmol/L (3.5-5.1); Sodium 137 mmol/L (137-145); Total Bilirubin 0.3 mg/dL (0.2-1.3); Total Protein 7.5 g/dL (6.3-8.2)
[2022-09-11 18:05] LABS: Amphetamine Screen,Urine Detected (NotDetected); Barbiturate Screen,Urine Not Detected (NotDetected); Benzodiazepines Screen,Urine Not Detected (NotDetected); Cocaine Screen,Urine Not Detected (NotDetected); Methadone Screen, Urine Not Detected (NotDetected); Opiate Screen,Urine Not Detected (NotDetected); Oxycodone Screen, Urine Not Detected (NotDetected); Phencyclidine Screen,Urine Not Detected (NotDetected); Tricyclic Antidepressant,Urine Not Detected (NotDetected); Urn Cannabinoid Scrn Detected (NotDetected)
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
[2022-09-11 19:24] VITALS: BP 141/81; PULSE 99; RESP 18
== END 2022-09-11 19:24 | disposition home or self-care (01) ==
LOC: EC 14:38
DX: S32.018A Other fracture of first lumbar vertebra, initial encounter for closed fracture (principal); F17.200 Nicotine dependence, unspecified, uncomplicated; F12.90 Cannabis use, unspecified, uncomplicated; F41.9 Anxiety disorder, unspecified; F32.A Depression, unspecified; Z88.2 Allergy status to sulfonamides; V69.9XXA Occupant (driver) (passenger) of heavy transport vehicle injured in unspecified traffic accident, initial encounter; Y93.89 Activity, other specified; Y92.411 Interstate highway as the place of occurrence of the external cause
CPT/HCPCS: 36415; 93005; 86900; 86901; 80053; 85025; 85610; 86850; 81001; 80306; 80320; 72125; 70450; 71260; 74177; 99284; 96365; 96375; 96361; J2360; J0131; Q9967

== ENCOUNTER 2023-09-21 12:13 | Emergency (ER) | payer OTHER ==
--- NOTE | 2023-09-21 12:34 | ED ---
General Adult HPI - General Chief complaint: Chest Pain Stated complaint: Chest Pain Time Seen by Provider: 09/21/23 12:20 Source: patient, EMS, RN notes reviewed, old records reviewed Mode of arrival: EMS Limitations: no limitations - History of Present Illness Initial comments: This is a 27-year-old male presents emergency department stating that he had some sharp chest pain on the left side to last for a couple of minutes per patient states he had a similar incident about a week ago and smoke marijuana. Patient states the area is tender to touch. Patient denies any shortness of breath or difficulty breathing. Patient denies any nausea vomiting. Patient denies any radiation of the pain. Patient denies lightheadedness or dizziness. Patient currently is having no pain whatsoever. Patient denies any issues with his heart in the past. Patient denies diabetes hypertension or high cholesterol. - Related Data Previous Rx's Medication Instructions Recorded Butalb/APAP/Caff 50-325-40Mg 1 tab PO Q4H PRN #10 tablet 07/20/22 [Fioricet 50-325-40] Acetaminophen Tab [Tylenol Tab] 500 mg PO Q6H PRN #24 tablet 09/11/22 Cyclobenzaprine [Flexeril] 10 mg PO TID PRN #20 tab 09/11/22 Naproxen [Naprosyn] 375 mg PO Q12HR PRN #20 tablet 09/11/22 Allergies Allergy/AdvReac Type Severity Reaction Status Date / Time alprazolam [From Xanax] AdvReac DOESN'T Verified 09/21/23 12:18 WANT Review of Systems ROS Statement: Those systems with pertinent positive or pertinent negative responses have been documented in the HPI. ROS Other: All systems not noted in ROS Statement are negative. Past Medical History Past Medical History: Seizure Disorder Additional Past Medical History / Comment(s): tricuspid valve problems, PS EUDOSEIZURES, History of Any Multi-Drug Resistant Organisms: None Reported Past Surgical History: Appendectomy, Orthopedic Surgery Additional Past Surgical History / Comment(s): testicular torsion correction, Past Psychological History: ADD/ADHD, Anxiety, Bipolar, Depression, Schizophrenia Smoking Status: Current every day smoker Past Alcohol Use History: Occasional Past Drug Use History: Marijuana, Methamphetamine General Exam - General Exam Comments Initial Comments: GENERAL: Patient is well-developed and well-nourished. Patient is nontoxic and well- hydrated and is in no acute distress. ENT: Neck is soft and supple. No significant lymphadenopathy is noted. Oropharynx is clear. Moist mucous membranes. Neck has full range of motion without eliciting any pain. EYES: The sclera were anicteric and conjunctiva were pink and moist. Extraocular movements were intact and pupils were equal round and reactive to light. Eyelids were unremarkable. PULMONARY: Unlabored respirations. Good breath sounds bilaterally. No audible rales rhonchi or wheezing was noted. CARDIOVASCULAR: There is a regular rate and rhythm without any murmurs gallops or rubs. Patient's pain is reproducible between 2 of the ribs at about rib 4 and 5. ABDOMEN: Soft and nontender with normal bowel sounds. No palpable organomegaly was noted. There is no palpable pulsatile mass. SKIN: Skin is clear with no lesions or rashes and otherwise unremarkable. NEUROLOGIC: Patient is alert and oriented x3. Cranial nerves II through XII are grossly intact. Motor and sensory are also intact. Normal speech, volume and content. Symmetrical smile. MUSCULOSKELETAL: Normal extremities with adequate strength and full range of motion. No lower extremity swelling or edema. No calf tenderness. LYMPHATICS: No significant lymphadenopathy is noted PSYCHIATRIC: Normal psychiatric evaluation. Limitations: no limitations Course Vital Signs 09/21/23 12:20 Temperature 98 F Pulse Rate 77 Respiratory 18 Rate Blood Pressure 122/76 O2 Sat by Pulse 99 Oximetry Medical Decision Making - Medical Decision Making EKG is interpreted by myself. EKG shows a sinus rhythm at 63 bpm WI interval 262 QRS 106 QT interval 395 QTC is 402. Patient's EKG shows no ST segment elevation or depression. Was pt. sent in by a medical professional or institution (, PA, PATIENT RELATIONS REPRESENTATIVE, urgent care, hospital, or long term...) When possible be specific @ -No Did you speak to anyone other than the patient for history (EMS, parent, family, police, friend...)? What history was obtained from this source @ -No Did you review nursing and triage notes (agree or disagree)? Why? @ -I reviewed and agree with nursing and triage notes Were old charts reviewed (outside hosp., previous admission, EMS record, old EKG, old radiological studies, urgent care reports/EKG's, long term records)? Report findings @ -I reviewed prior charts from prior radiological studies on this patient Differential Diagnosis (chest pain, altered mental status, abdominal pain women, abdominal pain men, vaginal bleeding, weakness, fever, dyspnea, syncope, headache, dizziness, GI bleed, back pain, seizure, CVA, palpatations, mental health, musculoskeletal)? @ -not applicable EKG interpreted by me (3pts min.). @ -As above X-rays interpreted by me (1pt min.). @ -Chest x-ray shows no acute abnormality CT interpreted by me (1pt min.). @ -None done U/S interpreted by me (1pt. min.). @ -None done What testing was considered but not performed or refused? (CT, X-rays, U/S, labs)? Why? @ -None What meds were considered but not given or refused? Why? @ -None Did you discuss the management of the patient with other professionals (professionals i.e. , PA, PATIENT RELATIONS REPRESENTATIVE, lab, RT, psych nurse, social work administrator, oven heater, teacher, training systems officer, rn case management)? Give summary @ -No Was smoking cessation discussed for >3mins.? @ -No Was critical care preformed (if so, how long)? @ -No Were there social determinants of health that impacted care today? How? (Homelessness, low income, unemployed, alcoholism, drug addiction, trans portation, low edu. Level, literacy, decrease access to med. care, [facility], rehab)? @ -No Was there de-escalation of care discussed even if they declined (Discuss DNR or withdrawal of care, Hospice)? DNR status @ -No What co-morbidities impacted this encounter? (DM, HTN, Smoking, COPD, CAD, Cancer, CVA, ARF, Chemo, Hep., AIDS, mental health diagnosis, sleep apnea, morbid obesity)? @ -None Was patient admitted / discharged? Hospital course, mention meds given and route, prescriptions, significant lab abnormalities, going to OR and other pertinent info. @ -She had reproducible chest pain all lab work and x-rays were normal. Patient states she has experienced similar pain in the past but this lasted a little longer so he came to the emergency department Undiagnosed new problem with uncertain prognosis? @ -No Drug Therapy requiring intensive monitoring for toxicity (Heparin, Nitro, Insulin, Cardizem)? @ -No Were any procedures done? @ -No Diagnosis/symptom? @ -Chest wall pain Acute, or Chronic, or Acute on Chronic? @ -Acute Uncomplicated (without systemic symptoms) or Complicated (systemic symptoms)? @ -Complicated Side effects of treatment? @ -No Exacerbation, Progression, or Severe Exacerbation? @ -No Poses a threat to life or bodily function? How? (Chest pain, USA, NH, pneumonia, PE, COPD, DKA, ARF, appy, cholecystitis, CVA, Diverticulitis, Homicidal, Suicidal, threat to staff... and all critical care pts) @ -No - Lab Data Result diagrams: 09/21/23 12:35 09/21/23 12:35 Lab Results 09/21/23 09/21/23 09/21/23 Range/Units 12:35 12:35 12:35 WBC 4.4 (3.8-10.6) k/uL RBC 4.62 (4.30-5.90) m/uL Hgb 14.0 (13.0-17.5) gm/dL Hct 41.9 (39.0-53.0) % MCV 90.7 (80.0-100.0) fL MCH 30.4 (25.0-35.0) pg MCHC 33.5 (31.0-37.0) g/dL RDW 12.7 (11.5-15.5) % Plt Count 227 (150-450) k/uL MPV 7.6 Neutrophils % 47 % Lymphocytes % 41 % Monocytes % 7 % Eosinophils % 2 % Basophils % 0 % Neutrophils # 2.1 (1.3-7.7) k/uL Lymphocytes # 1.8 (1.0-4.8) k/uL Monocytes # 0.3 (0-1.0) k/uL Eosinophils # 0.1 (0-0.7) k/uL Basophils # 0.0 (0-0.2) k/uL Sodium 140 (137-145) mmol/L Potassium 3.9 (3.5-5.1) mmol/L Chloride 106 (98-107) mmol/L Carbon Dioxide 23 (22-30) mmol/L Anion Gap 11 mmol/L BUN 16 (9-20) mg/dL Creatinine 1.09 (0.66-1.25) mg/dL Est GFR (CKD-EPI)AfAm >90 (>60 ml/min/1.73 sqM) Est GFR (CKD-EPI)NonAf >90 (>60 ml/min/1.73 sqM) Glucose 86 (74-99) mg/dL Calcium 9.1 (8.4-10.2) mg/dL Magnesium 2.1 (1.6-2.3) mg/dL Total Bilirubin 0.8 (0.2-1.3) mg/dL AST 36 (17-59) U/L ALT 34 (4-49) U/L Alkaline Phosphatase 56 (38-126) U/L Troponin I <0.012 (0.000-0.034) ng/mL Total Protein 7.0 (6.3-8.2) g/dL Albumin 4.2 (3.5-5.0) g/dL Disposition Clinical Impression: Chest wall pain Disposition: HOME SELF-CARE Instructions (If sedation given, give patient instructions): Chest Wall Pain (ED), Chest Pain (ED) Is patient prescribed a controlled substance at d/c from ED?: No Referrals: None,Stated [Primary Care Provider] - 1-2 days Time of Disposition: 13:41
[2023-09-21 12:40] VITALS: RESP 18; TEMP 98
[2023-09-21 12:43] LABS: Basophils % (A) 0 %; Eosinophils # (A) 0.1 k/uL (0-0.7); Eosinophils % (A) 2 %; HCT 41.9 % (39.0-53.0); Lymphocytes # (A) 1.8 k/uL (1.0-4.8); Lymphocytes % (A) 41 %; MCH 30.4 pg (25.0-35.0); MCHC 33.5 g/dL (31.0-37.0); MCV 90.7 fL (80.0-100.0); Mean Platelet Volume 7.6; Monocytes # (A) 0.3 k/uL (0-1.0); Monocytes % (A) 7 %; Neutrophils # (A) 2.1 k/uL (1.3-7.7); Neutrophils % (A) 47 %; Platelet Count 227 k/uL (150-450); RBC 4.62 m/uL (4.30-5.90); RDW 12.7 % (11.5-15.5); WBC 4.4 k/uL (3.8-10.6)
[2023-09-21 12:54] LABS: ALT 34 U/L (4-49); AST 36 U/L (17-59); African American GFR (CKD) >90 (>60 ml/min/1.73 sqM); Albumin 4.2 g/dL (3.5-5.0); Alkaline Phosphatase 56 U/L (38-126); Anion Gap 11 mmol/L; Blood Urea Nitrogen 16 mg/dL (9-20); Calcium 9.1 mg/dL (8.4-10.2); Carbon Dioxide 23 mmol/L (22-30); Chloride 106 mmol/L (98-107); Glucose 86 mg/dL (74-99); Magnesium 2.1 mg/dL (1.6-2.3); Non-African American GFR(CKD) >90 (>60 ml/min/1.73 sqM); Potassium 3.9 mmol/L (3.5-5.1); Sodium 140 mmol/L (137-145); Total Bilirubin 0.8 mg/dL (0.2-1.3)
--- NOTE | 2023-09-21 13:05 | XR ---
EXAMINATION TYPE: XR chest 2V DATE OF EXAM: 09/21/2023 COMPARISON: 03/30/2021 TECHNIQUE: PA and lateral views submitted. HISTORY: Chest pain FINDINGS: The lungs are clear and there is no pneumothorax, pleural effusion, or focal pneumonia. Heart size normal and no overt failure. Osseous structures demonstrate hypertrophic and degenerative changes of the spine. IMPRESSION: 1. No acute process.
[2023-09-21 14:17] VITALS: BP 112/80; PULSE 64
== END 2023-09-21 13:59 | disposition home or self-care (01) ==
LOC: EC 12:13
DX: R07.89 Other chest pain (principal); F17.200 Nicotine dependence, unspecified, uncomplicated; F12.90 Cannabis use, unspecified, uncomplicated; Z88.8 Allergy status to other drugs, medicaments and biological substances; Z86.59 Personal history of other mental and behavioral disorders
CPT/HCPCS: 36415; 71046; 80053; 83735; 84484; 85025; 93005; 99285

== ENCOUNTER 2023-10-31 19:20 | Emergency (ER) | payer OTHER ==
[2023-10-31 19:48] VITALS: RESP 18; TEMP 99
[2023-10-31 19:54] LABS: Glucose,Whole Blood 95 mg/dL (70-110)
[2023-10-31] MEDS ORDERED: KETOROLAC 15 MG/ML 1 ML VIAL IVP STA (21:49)
[2023-10-31] MEDS ORDERED: AMOXIC-POT CLAV 875-125MG 1 EACH TAB PO STA (21:49)
[2023-10-31] MEDS ORDERED: SODIUM CHLORIDE 0.9% 1,000 ML IV STA (21:49)
[2023-10-31] MEDS ORDERED: PHENYTOIN SODIUM EXTENDED 100 MG CAP PO STA (21:49)
[2023-10-31] MEDS ORDERED: AMOXIC-POT CLAV 875MG STARTER PACK 2 TAB BTL PO STA (21:50)
[2023-10-31] MEDS ORDERED: IBUPROFEN 600 MG STARTER PACK 4 TAB BTL PO STA (21:50)
[2023-10-31] MEDS ORDERED: ONDANSETRON 4 MG ODT STARTER PACK 2 TAB BTL PO STA (21:50)
[2023-10-31] MEDS ORDERED: PHENYTOIN SODIUM INJ 1,000 MG in SODIUM CHLORIDE 0.9% 100 ML IVPB STA (21:54)
--- NOTE | 2023-10-31 21:54 | ED ---
Seizure HPI - General Chief Complaint: Seizure Stated Complaint: Seizure Time Seen by Provider: 10/31/23 21:09 Source: patient, RN notes reviewed, old records reviewed Mode of arrival: ambulatory Limitations: no limitations - History of Present Illness Initial Comments: This is a 27-year-old male DF for evaluation of a seizure today. Patient has seizure prior to arrival. No current seizure activity the patient has been complaining of facial pain tooth pain toothache. Patient is having no recurrent seizures here in the ER patient feels well taking medications as prescribed has no complaints of headache nausea vomiting diarrhea or abdominal pain MD Complaint: seizure -: hour(s) Description of Episode: loss of consciousness, tonic-clonic movement -: second(s) Witnessed: yes - by bystander Trauma: Yes Seizure History: known seizure disorder Place: home Possible Precipitating Event: none Associated Symptoms: denies other symptoms, other (Patient is also complaining of dental pain) Treatments Prior to Arrival: none - Related Data Previous Rx's Medication Instructions Recorded Butalb/APAP/Caff 50-325-40Mg 1 tab PO Q4H PRN #10 tablet 07/20/22 [Fioricet 50-325-40] Acetaminophen Tab [Tylenol Tab] 500 mg PO Q6H PRN #24 tablet 09/11/22 Cyclobenzaprine [Flexeril] 10 mg PO TID PRN #20 tab 09/11/22 Naproxen [Naprosyn] 375 mg PO Q12HR PRN #20 tablet 09/11/22 Amoxic-Pot Clav 875-125Mg 1 tab PO Q12HR #20 tablet 10/31/23 [Augmentin 875-125] Phenytoin Sodium Extended 100 mg PO TID #90 capsule 10/31/23 [Dilantin] Allergies Allergy/AdvReac Type Severity Reaction Status Date / Time alprazolam [From Xanax] AdvReac DOESN'T Verified 09/21/23 12:18 WANT Review of Systems ROS Statement: Those systems with pertinent positive or pertinent negative responses have been documented in the HPI. ROS Other: All systems not noted in ROS Statement are negative. Past Medical History Past Medical History: Seizure Disorder Additional Past Medical History / Comment(s): tricuspid valve problems, PSEUDOSEIZURES, History of Any Multi-Drug Resistant Organisms: None Reported Past Surgical History: Appendectomy, Orthopedic Surgery Additional Past Surgical History / Comment(s): testicular torsion correction, Past Psychological History: ADD/ADHD, Anxiety, Bipolar, Depression, Schizophrenia Smoking Status: Current every day smoker, V[employer] Past Alcohol Use History: Occasional Past Drug Use History: Marijuana, Methamphetamine General Exam Limitations: no limitations General appearance: alert, in no apparent distress Head exam: Present: atraumatic, normocephalic, normal inspection Eye exam: Present: normal appearance, PERRL, EOMI. Absent: scleral icterus, conjunctival injection, periorbital swelling ENT exam: Present: normal exam, mucous membranes moist Neck exam: Present: normal inspection. Absent: tenderness, meningismus, lymphadenopathy Respiratory exam: Present: normal lung sounds bilaterally. Absent: respiratory distress, wheezes, rales, rhonchi, stridor Cardiovascular Exam: Present: regular rate, normal rhythm, normal heart sounds. Absent: systolic murmur, diastolic murmur, rubs, gallop, clicks GI/Abdominal exam: Present: soft, normal bowel sounds. Absent: distended, tenderness, guarding, rebound, rigid Extremities exam: Present: normal inspection, full ROM, normal capillary refill. Absent: tenderness, pedal edema, joint swelling, calf tenderness Back exam: Present: normal inspection Neurological exam: Present: alert, oriented X3, CN II-XII intact Psychiatric exam: Present: normal affect, normal mood Skin exam: Present: warm, dry, intact, normal color. Absent: rash Course Vital Signs 10/31/23 10/31/23 19:23 23:47 Temperature 99 F Pulse Rate 86 66 Respiratory 18 18 Rate Blood Pressure 110/69 114/73 O2 Sat by Pulse 95 98 Oximetry - Reevaluation(s) Reevaluation #1: Medical records reviewed Reevaluation #2: Patient symptoms improved Reevaluation #3: Patient informed results and questions answered Reevaluation #4: Was pt. sent in by a medical professional or institution (, PA, NEUROBIOLOGIST, urgent care, hospital, or usp...) When possible be specific @ -no Did you speak to anyone other than the patient for history (EMS, parent, family, police, friend...)? What history was obtained from this source @ -no Did you review nursing and triage notes (agree or disagree)? Why? @ -agree Are old charts reviewed (outside hosp., previous admission, EMS record, old EKG, old radiological studies, urgent care reports/EKG's, usp records)? Report findings @ -yes Differential Diagnosis (chest pain, altered mental status, abdominal pain women, abdominal pain men, vaginal bleeding, weakness, fever, dyspnea, syncope, headache, dizziness, GI bleed, back pain, seizure, CVA, palpatations, mental health, musculoskeletal)? @ -prior EKG interpreted by me (3pts min.). @ -no X-rays interpreted by me (1pt min.). @ -no CT interpreted by me (1pt min.). @ -no U/S interpreted by me (1pt. min.). @ -no What testing was considered but not performed or refused? (CT, X-rays, U/S, labs)? Why? @ -none What meds were considered but not given or refused? Why? @ -none Did you discuss the management of the patient with other professionals (professionals i.e. , PA, NEUROBIOLOGIST, lab, RT, psych nurse, web content & social media manager, nutter up, teacher, risk officer, outsole caser)? Give summary @ -no Was smoking cessation discussed for >3mins.? @ -no Were there social determinants of health that impacted care today? How? (Homelessness, low income, unemployed, alcoholism, drug addiction, trans portation, low edu. Level, literacy, decrease access to med. care, halfway, rehab)? @ -none Was there de-escalation of care discussed even if they declined (Discuss DNR or withdrawal of care, Hospice)? DNR status @ -no What co-morbidities impacted this encounter? (DM, HTN, Smoking, COPD, CAD, Cancer, CVA, ARF, Chemo, Hep., AIDS, mental health diagnosis, sleep apnea, morbid obesity)? @ -none Was patient admitted / discharged? Hospital course, mention meds given and route, prescriptions, significant lab abnormalities, going to OR and other pertinent info. @ - 27 male to the emergency department for evaluation of a few complaints today. He did have a seizure prior to arrival with no recurrent seizure activity here in the ER also recently treated for dental infection will change antibiotics and patient can be discharged home pain is controlled Discharged Was critical care preformed (if so, how long)? @ -no Undiagnosed new problem with uncertain prognosis? @ -no Drug Therapy requiring intensive monitoring for toxicity (Heparin, Nitro, Insulin, Cardizem)? @ -no Were any procedures done? @ -no Diagnosis/symptom? @ -Recurrent seizure dental infection and abscess Acute, or Chronic, or Acute on Chronic? @ -Acute Uncomplicated (without systemic symptoms) or Complicated (systemic symptoms)? @ -Complicated Side effects of treatment? @ -no Exacerbation, Progression, or Severe Exacerbation? @ -exacerbation Poses a threat to life or bodily function? How? (Chest pain, USA, OR, pneumonia, PE, COPD, DKA, ARF, appy, cholecystitis, CVA, Diverticulitis, Homicidal, Suicidal, threat to staff... and all critical care pts) @ -yes with persistent seizure status epilepticus Reevaluation #5: Differential Seizure: Recurrent seizure disorder, febrile seizure, alcohol withdrawal, stimulants, meningitis, encephalitis, intercranial hemorrhage, intracranial tumor, stroke, eclampsia, thyrotoxicosis, hypocalcemia, hyponatremia, hypernatremia, hy pomagnesemia, psychogenic, this is not meant to be an all-inclusive list. Medical Decision Making - Medical Decision Making 27 male to the emergency department for evaluation of a few complaints today. He did have a seizure prior to arrival with no recurrent seizure activity here in the ER also recently treated for dental infection will change antibiotics and patient can be discharged home pain is controlled - Lab Data Lab Results 10/31/23 Range/Units 19:53 POC Glucose (mg/dL) 95 (70-110) mg/dL POC Glu Traffic Signal Mechanic ELVER BoydAmanda green Disposition Clinical Impression: Epileptic seizure, generalized, Dental abscess Disposition: HOME SELF-CARE Condition: Good Instructions (If sedation given, give patient instructions): Seizure/Epilepsy Discharge Instructions & Follow-Up, Dental Abscess (ED) Prescriptions: Amoxic-Pot Clav 875-125Mg [Augmentin 875-125] 1 tab PO Q12HR #20 tablet Phenytoin Sodium Extended [Dilantin] 100 mg PO TID #90 capsule Is patient prescribed a controlled substance at d/c from ED?: No Referrals: None,Stated [Primary Care Provider] - 1-2 days Time of Disposition: 22:00
[2023-10-31] MEDS ORDERED: ONDANSETRON 4 MG/2 ML VIAL IVP STA (22:11)
[2023-10-31 23:57] VITALS: BP 114/73; PULSE 66
== END 2023-10-31 23:48 | disposition home or self-care (01) ==
LOC: EC 19:20
DX: G40.409 Other generalized epilepsy and epileptic syndromes, not intractable, without status epilepticus (principal); K04.7 Periapical abscess without sinus; F17.290 Nicotine dependence, other tobacco product, uncomplicated; F12.90 Cannabis use, unspecified, uncomplicated; F15.90 Other stimulant use, unspecified, uncomplicated; Z86.59 Personal history of other mental and behavioral disorders; Z88.8 Allergy status to other drugs, medicaments and biological substances
CPT/HCPCS: 36415; 99285; 96365; 96375 ×2; J1165; J2405; J1885; S0119

== ENCOUNTER 2024-01-31 17:52 | Emergency (ER) | payer OTHER ==
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
[2024-01-31 19:39] LABS: Basophils % (A) 0 %; Eosinophils # (A) 0.1 k/uL (0-0.7); Eosinophils % (A) 1 %; HCT 45.7 % (39.0-53.0); HGB 14.8 gm/dL (13.0-17.5); Lymphocytes # (A) 1.5 k/uL (1.0-4.8); Lymphocytes % (A) 18 %; MCHC 32.3 g/dL (31.0-37.0); MCV 89.7 fL (80.0-100.0); Mean Platelet Volume 7.7; Monocytes # (A) 0.4 k/uL (0-1.0); Monocytes % (A) 4 %; Neutrophils # (A) 6.4 k/uL (1.3-7.7); Neutrophils % (A) 75 %; Platelet Count 265 k/uL (150-450); RDW 11.9 % (11.5-15.5); WBC 8.5 k/uL (3.8-10.6)
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
[2024-01-31 19:48] LABS: ALT 28 U/L (4-49); AST 27 U/L (17-59); African American GFR (CKD) >90 (>60 ml/min/1.73 sqM); Albumin 4.4 g/dL (3.5-5.0); Alcohol <10 mg/dL; Alkaline Phosphatase 67 U/L (38-126); Anion Gap 4 mmol/L; Blood Urea Nitrogen 12 mg/dL (9-20); Calcium 9.5 mg/dL (8.4-10.2); Carbon Dioxide 28 mmol/L (22-30); Chloride 108 mmol/L (98-107); Glucose 102 mg/dL (74-99); Lithium <0.2 mmol/L; Non-African American GFR(CKD) 81 (>60 ml/min/1.73 sqM); Sodium 140 mmol/L (137-145); Total Bilirubin 0.5 mg/dL (0.2-1.3); Total Protein 7.2 g/dL (6.3-8.2)
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
[2024-01-31 21:02] VITALS: BP 132/71; PULSE 89; RESP 20; TEMP 98.4
== END 2024-01-31 20:35 | disposition home or self-care (01) ==
LOC: EC 17:52
DX: S20.219A Contusion of unspecified front wall of thorax, initial encounter (principal); S50.02XA Contusion of left elbow, initial encounter; F39 Unspecified mood [affective] disorder; F12.90 Cannabis use, unspecified, uncomplicated; F17.290 Nicotine dependence, other tobacco product, uncomplicated; F15.90 Other stimulant use, unspecified, uncomplicated; Z88.8 Allergy status to other drugs, medicaments and biological substances; V89.2XXA Person injured in unspecified motor-vehicle accident, traffic, initial encounter; Y92.411 Interstate highway as the place of occurrence of the external cause
CPT/HCPCS: 82075; 36415; 80053; 80178; 85025; 73080; 71046; 70450; 99285; G0480; 80320

== ENCOUNTER 2025-01-09 11:35 | Emergency (ER) | payer OTHER ==
[2025-01-09 11:47] LABS: Glucose,Whole Blood 82 mg/dL (70-110)
--- NOTE | 2025-01-09 12:06 | ED ---
Recheck HPI - General Chief Complaint: Recheck/Abnormal Lab/Rx Stated Complaint: low blood sugar Time Seen by Provider: 01/09/25 12:00 Source: patient, EMS, RN notes reviewed Mode of arrival: EMS Limitations: no limitations - History of Present Illness Initial Comments: This is a 29-year-old male who presents to the emergency department for hyperglycemia. Patient is currently at [facility] for methamphetamine use. States that today he started to feel dizzy and felt like he was going to pass out. They checked his blood sugar and found it to be 68. They gave him orange juice and he started to improve almost immediately. States that this has valdez ppened to him in the past and he is unsure why. Denies any chest pain or shortness of breath. States that he is overall feeling much better than he did, he is just hungry. - Related Data Home Medications Medication Instructions Recorded Confirmed ARIPiprazole IM SYRINGE [Abilify 400 mg IM Q28D 01/31/24 01/31/24 Maintena Syringe] [place] Carbonate 600 mg PO HS 01/31/24 01/31/24 Mirtazapine [Remeron Soluspan] 30 mg PO HS 01/31/24 01/31/24 Phenytoin Sodium Extended 100 mg PO BID 01/31/24 01/31/24 [Dilantin] Allergies Allergy/AdvReac Type Severity Reaction Status Date / Time alprazolam [From Xanax] AdvReac DOESN'T Verified 01/09/25 11:40 WANT Review of Systems ROS Statement: Those systems with pertinent positive or pertinent negative responses have been documented in the HPI. ROS Other: All systems not noted in ROS Statement are negative. Past Medical History Past Medical History: Seizure Disorder Additional Past Medical History / Comment(s): tricuspid valve problems, PSEUDOSEIZURES, History of Any Multi-Drug Resistant Organisms: None Reported Past Surgical History: Appendectomy, Orthopedic Surgery Additional Past Surgical History / Comment(s): testicular torsion correction, Past Psychological History: ADD/ADHD, Anxiety, Bipolar, Depression, Schizophrenia Smoking Status: Current every day smoker, Vaper Past Alcohol Use History: Occasional Past Drug Use History: Marijuana, Methamphetamine General Exam Limitations: no limitations General appearance: alert, in no apparent distress Head exam: Present: atraumatic, normocephalic, normal inspection Eye exam: Present: normal appearance, PERRL, EOMI. Absent: scleral icterus, conjunctival injection, periorbital swelling Respiratory exam: Present: normal lung sounds bilaterally. Absent: respiratory distress, wheezes, rales, rhonchi, stridor Cardiovascular Exam: Present: regular rate, normal rhythm GI/Abdominal exam: Present: soft, normal bowel sounds. Absent: distended, tenderness, guarding, rebound, rigid Neurological exam: Present: alert, oriented X3, CN II-XII intact Psychiatric exam: Present: normal affect, normal mood Skin exam: Present: warm, dry, intact, normal color. Absent: rash Course Vital Signs 01/09/25 01/09/25 11:37 13:38 Temperature 99.2 F 99.0 F Pulse Rate 73 80 Respiratory 16 18 Rate Blood Pressure 132/86 122/85 O2 Sat by Pulse 99 100 Oximetry Medical Decision Making - Medical Decision Making This is a 29-year-old male who presents to the emergency department for hypoglycemia. Was pt. sent in by a medical professional or institution? @ -No Did you speak to anyone other than the patient for history? @ -No Did you review nursing and triage notes? @ -Yes, and I agree, it is accurate with regards to the patient's symptoms. Were old charts reviewed? @ -No Differential Diagnosis? @ -Dietary intake, insulinoma, illness, medication, this is not meant to be an all-inclusive list. EKG interpreted by me (3pts min.)? @ -EKG interpreted by me demonstrating the following: Sinus rhythm. Ventricular rate 71 bpm, RI interval 168 ms, QRS duration 96 ms, QTc 401 ms. X-rays interpreted by me (1pt min.)? @ -Not obtained CT interpreted by me (1pt min.)? @ -Not obtained U/S interpreted by me (1pt. min.)? @ -Not obtained What testing was considered but not performed? (CT, X-rays, U/S, labs)? Why? @ -None What meds were considered but not given? Why? @ -None Did you discuss the management of the patient with other professionals? @ -No Did you reconcile home meds? @ -No Was smoking cessation discussed for >3mins.? @ -No Was critical care preformed (if so, how long)? @ -No Were there social determinants of health that impacted care today? How? (Homelessness, low income, unemployed, alcoholism, drug addiction, transportation, low edu. Level, literacy, decrease access to med. care, snf, rehab)? @ -Drug addiction and rehab, which is where the event took place Was there de-escalation of care discussed even if they declined? (Discuss DNR or withdrawal of care, Hospice)? @ -No What co-morbidities impacted this encounter? (DM, HTN, Smoking, COPD, CAD, Cancer, CVA, Hep., AIDS, mental health diagnosis, sleep apnea, morbid obesity)? @ -Drug addiction Was patient admitted / discharged? @ -Discharged. Lab work unremarkable. Glucose remained in the 80s. Patient treated with IV fluids and given food to eat. He remained asymptomatic in the emergency department. Advised to make sure he eats and remains well-hydrated to prevent these episodes in the future. Patient discharged back to [facility] in stable condition. Case discussed with ED attending Dr. Mack. Return precautions reviewed in depth, the patient is instructed to return to the emergency department with any new, worsening, or concerning symptoms. Patient verbalized understanding. Undiagnosed new problem with uncertain prognosis? @ -None Drug Therapy requiring intensive monitoring for toxicity (Heparin, Nitro, Insulin, Cardizem)? @ -None Were any procedures done? @ -None Diagnosis/symptom? @ -Hypoglycemia, dizziness Acute, or Chronic, or Acute on Chronic? @ -Acute Uncomplicated (without systemic symptoms) or Complicated (systemic symptoms)? @ -Uncomplicated Side effects of treatment? @ -None Exacerbation, Progression, or Severe Exacerbation] @ -Not applicable Poses a threat to life or bodily function? @ -No - Lab Data Result diagrams: 01/09/25 12:10 01/09/25 12:10 Lab Results 01/09/25 01/09/25 01/09/25 Range/Units 11:40 12:10 12:10 WBC 5.9 (3.8-10.6) k/uL RBC 5.30 (4.30-5.90) m/uL Hgb 15.1 (13.0-17.5) gm/dL Hct 47.3 (39.0-53.0) % MCV 89.2 (80.0-100.0) fL MCH 28.5 (25.0-35.0) pg MCHC 31.9 (31.0-37.0) g/dL RDW 13.2 (11.5-15.5) % Plt Count 321 (150-450) k/uL MPV 7.8 Neutrophils % 56 % Lymphocytes % 32 % Monocytes % 7 % Eosinophils % 4 % Basophils % 0 % Neutrophils # 3.3 (1.3-7.7) k/uL Lymphocytes # 1.9 (1.0-4.8) k/uL Monocytes # 0.4 (0-1.0) k/uL Eosinophils # 0.2 (0-0.7) k/uL Basophils # 0.0 (0-0.2) k/uL Sodium 138 (137-145) mmol/L Potassium 4.6 (3.5-5.1) mmol/L Chloride 102 (98-107) mmol/L Carbon Dioxide 27 (22-30) mmol/L Anion Gap 9 mmol/L BUN 15 (9-20) mg/dL Creatinine 1.16 (0.66-1.25) mg/dL Est GFR (CKD-EPI)AfAm >90 (>60 ml/min/1.73 sqM) Est GFR (CKD-EPI)NonAf 85 (>60 ml/min/1.73 sqM) Glucose 80 (74-99) mg/dL POC Glucose (mg/dL) 82 (70-110) mg/dL POC Glu Wash Barrel Leader ID Jon Playcie Calcium 9.8 (8.4-10.2) mg/dL Phosphorus 4.6 H (2.5-4.5) mg/dL Magnesium 2.5 H (1.6-2.3) mg/dL Total Bilirubin 0.5 (0.2-1.3) mg/dL AST 34 (17-59) U/L ALT 35 (4-49) U/L Alkaline Phosphatase 71 (38-126) U/L Troponin I (0.000-0.034) ng/mL Total Protein 7.5 (6.3-8.2) g/dL Albumin 4.6 (3.5-5.0) g/dL 01/09/25 Range/Units 12:10 WBC (3.8-10.6) k/uL RBC (4.30-5.90) m/uL Hgb (13.0-17.5) gm/dL Hct (39.0-53.0) % MCV (80.0-100.0) fL MCH (25.0-35.0) pg MCHC (31.0-37.0) g/dL RDW (11.5-15.5) % Plt Count (150-450) k/uL MPV Neutrophils % % Lymphocytes % % Monocytes % % Eosinophils % % Basophils % % Neutrophils # (1.3-7.7) k/uL Lymphocytes # (1.0-4.8) k/uL Monocytes # (0-1.0) k/uL Eosinophils # (0-0.7) k/uL Basophils # (0-0.2) k/uL Sodium (137-145) mmol/L Potassium (3.5-5.1) mmol/L Chloride (98-107) mmol/L Carbon Dioxide (22-30) mmol/L Anion Gap mmol/L BUN (9-20) mg/dL Creatinine (0.66-1.25) mg/dL Est GFR (CKD-EPI)AfAm (>60 ml/min/1.73 sqM) Est GFR (CKD-EPI)NonAf (>60 ml/min/1.73 sqM) Glucose (74-99) mg/dL POC Glucose (mg/dL) (70-110) mg/dL POC Glu Wash Barrel Leader ID Calcium (8.4-10.2) mg/dL Phosphorus (2.5-4.5) mg/dL Magnesium (1.6-2.3) mg/dL Total Bilirubin (0.2-1.3) mg/dL AST (17-59) U/L ALT (4-49) U/L Alkaline Phosphatase (38-126) U/L Troponin I <0.012 (0.000-0.034) ng/mL Total Protein (6.3-8.2) g/dL Albumin (3.5-5.0) g/dL Disposition Clinical Impression: Dizziness, Hypoglycemia Disposition: HOME SELF-CARE Instructions (If sedation given, give patient instructions): Non-diabetic Hypoglycemia (ED) Additional Instructions: Return to the emergency department with any new, worsening, or concerning symptoms. Follow up with your primary care provider in 1-2 days. Is patient prescribed a controlled substance at d/c from ED?: No Referrals: [facility] [Primary Care Provider] - 1-2 days Time of Disposition: 13:09
[2025-01-09] MEDS: SODIUM CHLORIDE 0.9% 1,000 ML IV ONE (12:10)
[2025-01-09 12:23] LABS: Basophils % (A) 0 %; Eosinophils # (A) 0.2 k/uL (0-0.7); Eosinophils % (A) 4 %; HCT 47.3 % (39.0-53.0); HGB 15.1 gm/dL (13.0-17.5); Lymphocytes # (A) 1.9 k/uL (1.0-4.8); Lymphocytes % (A) 32 %; MCH 28.5 pg (25.0-35.0); MCHC 31.9 g/dL (31.0-37.0); MCV 89.2 fL (80.0-100.0); Mean Platelet Volume 7.8; Monocytes # (A) 0.4 k/uL (0-1.0); Monocytes % (A) 7 %; Neutrophils # (A) 3.3 k/uL (1.3-7.7); Neutrophils % (A) 56 %; Platelet Count 321 k/uL (150-450); RDW 13.2 % (11.5-15.5); WBC 5.9 k/uL (3.8-10.6)
[2025-01-09 12:29] LABS: ALT 35 U/L (4-49); AST 34 U/L (17-59); African American GFR (CKD) >90 (>60 ml/min/1.73 sqM); Albumin 4.6 g/dL (3.5-5.0); Alkaline Phosphatase 71 U/L (38-126); Anion Gap 9 mmol/L; Blood Urea Nitrogen 15 mg/dL (9-20); Calcium 9.8 mg/dL (8.4-10.2); Carbon Dioxide 27 mmol/L (22-30); Chloride 102 mmol/L (98-107); Glucose 80 mg/dL (74-99); Magnesium 2.5 mg/dL (1.6-2.3); Non-African American GFR(CKD) 85 (>60 ml/min/1.73 sqM); Phosphorus 4.6 mg/dL (2.5-4.5); Potassium 4.6 mmol/L (3.5-5.1); Sodium 138 mmol/L (137-145); Total Bilirubin 0.5 mg/dL (0.2-1.3); Total Protein 7.5 g/dL (6.3-8.2)
[2025-01-09 13:40] VITALS: BP 122/85; PULSE 80; RESP 18; TEMP 99
== END 2025-01-09 13:41 | disposition home or self-care (01) ==
LOC: EC 11:35
DX: E16.2 Hypoglycemia, unspecified (principal); R42 Dizziness and giddiness; F17.290 Nicotine dependence, other tobacco product, uncomplicated; Z88.8 Allergy status to other drugs, medicaments and biological substances
CPT/HCPCS: 36415; 80053; 83735; 84100; 84484; 85025; 93005; 96360; 99285

== ENCOUNTER 2025-01-24 16:06 | Emergency (ER) | payer OTHER ==
[2025-01-24 16:39] VITALS: RESP 18; TEMP 99.9
--- NOTE | 2025-01-24 16:40 | ED ---
General Adult HPI <Nick Mcgill - Last Filed: 01/24/25 17:19> - General Source: patient Mode of arrival: ambulatory Limitations: no limitations <Riley Sinclair - Last Filed: 01/24/25 18:07> - General Stated complaint: cough, sneezing, chest is burning Time Seen by Provider: 01/24/25 16:39 - History of Present Illness Initial comments: 29-year-old male presenting with chief complaint of flulike symptoms. Patient is having cough and congestion. He is also having burning in his chest. Started at 4 AM today. (Riley Sinclair) - Related Data Home Medications Medication Instructions Recorded Confirmed ARIPiprazole IM SYRINGE [Abilify 400 mg IM Q28D 01/31/24 01/31/24 Maintena Syringe] [place] Carbonate 600 mg PO HS 01/31/24 01/31/24 Mirtazapine [Remeron Soluspan] 30 mg PO HS 01/31/24 01/31/24 Phenytoin Sodium Extended 100 mg PO BID 01/31/24 01/31/24 [Dilantin] Previous Rx's Medication Instructions Recorded Acetaminophen Tab [Tylenol Tab] 1,000 mg PO Q6HR PRN #30 tablet 01/24/25 Allergies Allergy/AdvReac Type Severity Reaction Status Date / Time alprazolam [From Xanax] AdvReac DOESN'T Verified 01/24/25 16:39 WANT Review of Systems ROS Other: All systems not noted in ROS Statement are negative. <Nick Mcgill - Last Filed: 01/24/25 17:19> ROS Other: All systems not noted in ROS Statement are negative. <Riley Sinclair - Last Filed: 01/24/25 18:07> ROS Statement: Those systems with pertinent positive or pertinent negative responses have been documented in the HPI. Past Medical History Past Medical History: Seizure Disorder Additional Past Medical History / Comment(s): tricuspid valve problems, PSEUDOSEIZURES, History of Any Multi-Drug Resistant Organisms: None Reported Past Surgical History: Appendectomy, Orthopedic Surgery Additional Past Surgical History / Comment(s): testicular torsion correction, Past Psychological History: ADD/ADHD, Anxiety, Bipolar, Depression, Schizophrenia Smoking Status: Current every day smoker, Vaper Past Alcohol Use History: Occasional Past Drug Use History: Marijuana, Methamphetamine <Riley Sinclair - Last Filed: 01/24/25 18:07> General Exam Limitations: no limitations <Riley Sinclair - Last Filed: 01/24/25 18:07> - General Exam Comments Initial Comments: Visual Physical Exam Vital signs reviewed General: Well-appearing, nontoxic, no acute distress. Head: Normocephalic, atraumatic Eyes: PERRLA, EOMI ENT: Airway patent Chest: Nonlabored breathing Skin: No visual rash, normal skin tone Neuro: Alert and oriented 3 Musculoskeletal: No gross abnormalities (Riley Sinclair) Course Vital Signs 01/24/25 16:32 Temperature 99.9 F H Pulse Rate 105 H Respiratory 18 Rate Blood Pressure 124/88 O2 Sat by Pulse 95 Oximetry Medical Decision Making <Nick Mcgill - Last Filed: 01/24/25 17:19> <Riley Sinclair - Last Filed: 01/24/25 18:07> - Medical Decision Making I personally saw the patient and performed the critical portion of the service. I discussed the patient care with the Dr. Boykin. I directed management, care planning and final disposition of the patient. This includes, but not limited to, review of all lab work, radiological studies, EKG's, consultations, vital signs, and nursing notes. EKG interpreted by me (3pts min.) @ [as above] X-Rays interpreted by me (1 pt min.) @ [none] CT interpreted by me ( 1pt min.) @ [none] U/S interpreted by me (1 pt min.) @ [none] Critical care time of [0] minutes excluding separately billable procedures was spent in conjunction with critical care activities provided by the Resident and Attending simultaneously. I was present during [no procedures] for all critical portions of the procedure and as immediately available to furnish service during the entire procedure. (Nick Mcgill) I performed the quick note portion of this visit, electronically signed Riley Sinclair PA-C (Riley Sinclair) - Lab Data Lab Results 01/24/25 01/24/25 Range/Units 16:39 17:21 POC Glucose (mg/dL) 94 (70-110) mg/dL POC Glu [place] ID Tereso Plasencia Influenza Type A (PCR) Not Detected (Not Detectd) Influenza Type B (PCR) Not Detected (Not Detectd) RSV (PCR) Not Detected (Not Detectd) SARS-CoV-2 (PCR) Not Detected (Not Detectd) Disposition <Nick Mcgill - Last Filed: 01/24/25 17:19> Is patient prescribed a controlled substance at d/c from ED?: No Time of Disposition: 18:07 <Riley Sinclair - Last Filed: 01/24/25 18:07> Clinical Impression: Acute upper respiratory infection Disposition: HOME SELF-CARE Condition: Good Instructions (If sedation given, give patient instructions): Upper Respiratory Infection (ED) Additional Instructions: Follow-up with PCP. Report back to ER with any new or worsening symptoms. Take Tylenol as needed for symptomatic control Prescriptions: Acetaminophen Tab [Tylenol Tab] 1,000 mg PO Q6HR PRN #30 tablet PRN Reason: Pain Referrals: Bill Salinas MD [Primary Care Provider] - 1-2 days
[2025-01-24 17:22] LABS: Glucose,Whole Blood 94 mg/dL (70-110)
[2025-01-24 17:31] LABS: Influenza A Not Detected (Not Detectd); Influenza B Not Detected (Not Detectd); RSV Not Detected (Not Detectd)
--- NOTE | 2025-01-24 17:43 | XR ---
EXAMINATION TYPE: XR chest 2V DATE OF EXAM: 01/24/2025 5:18 PM COMPARISON: Chest radiographs from 01/31/2024 CLINICAL INDICATION: Male, 29 years old with history of Burning in chest; [facility] TECHNIQUE: XR chest 2V Frontal and lateral views of the chest. FINDINGS: Lungs/Pleura: There is no evidence of pleural effusion, focal consolidation, or pneumothorax. Pulmonary vascularity: Unremarkable. Heart/mediastinum: Cardiomediastinal silhouette is unremarkable. Musculoskeletal: No acute osseous pathology. IMPRESSION: No acute cardiopulmonary disease/process. [facility], , 01/24/2025 5:41 PM
[2025-01-24] MEDS ORDERED: IBUPROFEN 600 MG TAB PO STA (18:06)
[2025-01-24 18:11] VITALS: BP 116/86; PULSE 100
[2025-01-24] MEDS: ACETAMINOPHEN TAB 325 MG TAB PO STA (18:13)
== END 2025-01-24 18:16 | disposition home or self-care (01) ==
LOC: EC 16:06 → SUPCPDRO 16:06 → EC 18:16
DX: J06.9 Acute upper respiratory infection, unspecified (principal); F17.290 Nicotine dependence, other tobacco product, uncomplicated; Z88.8 Allergy status to other drugs, medicaments and biological substances
CPT/HCPCS: 36415; 71046; 87636; 99283